=== PATIENT | female | born 1955 | race Caucasian/White ===

== ENCOUNTER 2018-03-26 20:04 | Emergency (ER) | payer MEDICARE ==
[~2018-03-26] VITALS: Ht 160 cm; Wt 81.6 kg
[2018-03-26 21:26] VITALS: BP 138/62
[2018-03-26] MEDS ORDERED: ROBAXIN-750750 MG PO (21:34)
== END 2018-03-26 21:37 | disposition home or self-care (01) ==
LOC: FSED 20:04
CPT/HCPCS: 99282

== ENCOUNTER 2020-09-03 13:17 | Emergency (ER) | payer MEDICARE, OTHER ==
[~2020-09-03] VITALS: Ht 160 cm; Wt 81.6 kg
[~2020-09-03 13:17] MED LIST: ROBAXIN-750750 MG PO
[2020-09-03] MEDS ORDERED: KETOROLAC TROMETHAMINE 60 MG/2 ML VIAL IM ONE (14:15)
[2020-09-03] MEDS ORDERED: DIAZEPAM INJ 5 MG/ML 2 ML IM ONE (14:15)
[2020-09-03] MEDS ORDERED: DIAZEPAM10 MG PO (14:16)
[2020-09-03] MEDS ORDERED: NAPROSYN500 MG PO (14:17)
[2020-09-03] MEDS ORDERED: DIAZEPAM5 MG PO (14:19)
[2020-09-03] MEDS ORDERED: KETOROLAC TROMETHAMINE 60 MG/2 ML VIAL ONE (14:19)
[2020-09-03] MEDS ORDERED: DIAZEPAM INJ 5 MG/ML 2 ML ONE (14:19)
== END 2020-09-03 14:40 | disposition home or self-care (01) ==
LOC: FSED 13:25
DX: M43.6 Torticollis (principal); I10 Essential (primary) hypertension; E11.9 Type 2 diabetes mellitus without complications; F32.9 Major depressive disorder, single episode, unspecified; F41.9 Anxiety disorder, unspecified
CPT/HCPCS: 99283; J1885; J3360

== ENCOUNTER 2020-09-05 09:30 | Emergency (ER) | payer MEDICARE, OTHER ==
[~2020-09-05] VITALS: Ht 160 cm; Wt 81.6 kg
[~2020-09-05 09:30] MED LIST changes: +DIAZEPAM10 MG PO; +DIAZEPAM5 MG PO; +NAPROSYN500 MG PO
--- NOTE | 2020-09-05 09:58 | Emergency Department Note ---
History of Present Illnes History of Present Illness Chief Complaint: Head/Face Trauma History of Present Illness This is a 65 year old female, with a history of hypertension, hy pothyroidism, NIDDM, anxiety, depression, who states that she was bending over picking up a printer, and when she stood up she felt slightly dizzy, lost her balance, and fell back hitting the corner of a wood stereo cabinet. She had no loss of consciousness, and got up immediately and spoke to her sister, with him she lives. Patient also taken a dose of Valium 5 mg, proximal 1 hour prior to the incident, that she been prescribed 2 days ago due to severe muscle spasms in her neck. She currently denies any neck pain, headache, nausea, vomiting, visual changes, numbness, tingling, or focal weakness. Patient had some bleeding from the back of her head following the fall. Bleeding is currently controlled. Patient does not take any blood thinners including no aspirin. Patient also mentions that she received a phone call from her doctor this morning, stating that her sodium level was low on lab work that was drawn on 09/02/2020, and the patient was advised to go to the emergency room for evaluation of low sodium. Patient denies any generalized weakness weakness, muscle weakness or fatigue, or muscle spasm. Patient does take high-dose Spiron olactone 100 mg by mouth twice a day, to treat female hair loss. Pt states that she typically drinks @ 10 bottles/water per day. Historian: Patient Arrival Mode: Car Special Librarian Required: No Onset (how long ago): hour(s) (1) Location: Occipital area Quality: laceration/hematoma Radiation: Denies non-radiation, Denies neck, Denies extremity Severity: moderate Onset quality: sudden Duration (how long): hour(s) (1) Timing of current episode: unable to specify Progression: resolved (pt is currently without dizziness, headache, N/V;) Chronicity: new Context: Reports trauma/injury (See HPI) Relieving factors: none Exacerbating factors: none Associated symptoms: Reports denies other symptoms; Denies confusion, Denies chest pain, Denies fever/chills, Denies headaches, Denies nausea/vomiting, Denies shortness of breath, Denies weakness Treatments prior to arrival: none Risk factors: elderly, medication, diabetic and hasn't yet eaten. Past Medical/Family History Physician Review I have reviewed the patient's past medical and family history. Any updates have been documented here. Past Medical History Recent Fever: No Clinical Suspicion of Infectio: No New/Unexplained Change in Ment: No Past Medical History: Hypertension, Diabetes, Hypothyroidism, Anxiety, Depression Past Surgical History: T&A, Other Surgery: Shoulder - Right Social History Smoking Cessation: Never Smoker Alcohol Use: None Any Illegal Drug Use: No TB Exposure/Symptoms: No Physically hurt or threatened: No Family History Family history of heart diseas: No Other Last Tetanus: unknown Any Pre-Existing Lines (PICC,: No Is patient up to date on immun: No Review of Systems Review of Systems Constitutional: Denies chills, Denies fever, Denies weakness EENTM: Denies eye pain, Denies blurred vision, Denies double vision Cardiovascular: Denies chest pain, Denies palpitations Respiratory: Denies chest congestion, Denies cough, Denies dyspnea, Denies dyspnea on exertion Gastrointestinal: Denies abdominal pain, Denies diarrhea, Denies nausea, Denies vomiting Genitourinary: Reports no symptoms Musculoskeletal: Reports neck pain (mild bilateral paraspinal muscle neck pain, improved from when seen here 2 days ago; denies any new pain or injury.) Integumentary: Denies change in color, Denies rash Neurological: Denies headache, Denies numbness, Denies paresthesia, Denies tingling, Denies weakness Psychological: Reports no symptoms Endocrine: Reports no symptoms Hematological/Lymphatic: Reports no symptoms, Reports easy bruising; Denies blood clots Review of other systems: All other systems negative Physical Exam Related Data Allergies: Coded Allergies: Sulfa (Sulfonamide Antibiotics) (Verified Allergy, Severe, RASH, 03/26/18) Triage Vital Signs Vital Signs Date Time Temp Pulse Resp B/P (MAP) Pulse Ox O2 Delivery O2 Flow Rate FiO2 09/05/20 09:48 98.2 68 16 115/70 100 Room Air Physical Exam CONSTITUTIONAL Constitutional: Present well-developed, Present well-nourished; Absent distressed HENT HENT: Present oropharynx clear/moist, Present nose normal; Absent atraumatic (1.5 cm lac of the mid-occiput, without active bleeding, with underlying hematoma, without fluctuance;) HENT L/R: Present left TM normal, Present right TM normal, Present left ext ear normal, Present right ext ear normal EYES Eyes: Reports PERRL, Reports conjunctivae normal NECK Neck: Present ROM normal, Present supple; Absent JVD, Absent cervical adenopathy PULMONARY Pulmonary: Present effort normal, Present breath sounds normal CARDIOVASCULAR Cardiovascular: Present regular rhythm, Present heart sounds normal, Present capillary refill normal, Present normal rate; Absent murmur GASTROINTESTINAL Abdominal: Present soft, Present nontender, Present bowel sounds normal; Absent tender GENITOURINARY Genitourinary: Present exam deferred SKIN Skin: Present warm, Present dry; Absent rash, Absent lesion MUSCULOSKELETAL Musculoskeletal: Present ROM normal; Absent edema, Absent deformity, Absent tenderness NEUROLOGICAL Neurological: Present alert, Present oriented x 3, Present no gross motor or sensory deficits; Absent cranial nerve deficit PSYCHOLOGICAL Psychological: Present mood/affect normal, Present judgement normal Results Laboratory Laboratory UA - gluc = 500 mg/dl; blo - trace-lysed, imelda - small; Urine Culture - sent; CBC - nl except for HCT = 39.7; Metlyte - Na = 133, Cl = 92; Hepatic Profile - normal; CCKMB = 5.5, isabela = 154, trop - nl; Lab results reviewed: Yes Procedures Laceration Laceration: Laceration 1 Site: scalp Side: right (more central;) Description: irregular Depth: simple, single layer Local anesthesia: lidocaine 1% Amount of anesthesia (mL): 8 Pre-repair: wound exposed, irrigated extensively Skin layer closed with: other ([place]) Number of sutures: 5 Technique: other (senthil) Additional comments Pt tolerated well, without immediate complication; Assessment & Plan Medical Decision Making MDM - Pt declined CT brain and other syncope work up. She states that she fell, "because she hadn't eaten." Blood and urine were performed, due to possible hyponatremia; - Na - 133 mg/dl, - STOP taking the Valium, that was prescribed for your neck pain, as it may be contributing to dizziness. Be VERY careful standing up or getting out of bed, if you are taking the Tylenol #3 with codeine. - Keep the wound on the posterior scalp clean and dry x 24 hours, and then you may gently wash twice daily with antibacterial soap and water, and then apply over the counter antibiotic ointment, such as Triple Antibiotic Ointment, Bacitracin or Neosporin. - Follow-up in the ED in 7 days, for removal of senthil. - Follow-up sooner, if you develop any signs of infection around the wound, including drainage from the wound, redness, or increased tenderness of the wound. - Limit your daily water/fluid intake to 6 bottles/24h. - Return to the ED, if you develop a severe headache, vomiting 2 or more times, you are sleeping more than ususal, are having difficulty staying awake when you should be awake and alert or any neurologic symptoms. - Follow-up with your PCP, regarding this ER visit and to share your lab results. Assessment & Plan Final Impression: (1) Closed head injury (2) Fall (3) Laceration of scalp (4) UTI (urinary tract infection) (5) Diabetes (6) Hypertension (7) Depression Depart Disposition: HOME, SELF-CARE Last Vital Signs Date Time Temp Pulse Resp B/P (MAP) Pulse Ox O2 Delivery O2 Flow Rate FiO2 09/05/20 09:48 98.2 68 16 115/70 100 Room Air Home Meds Active Scripts Nitrofurantoin Monohyd/M-Cryst (MACROBID 100 MG CAPSULE) 100 Mg Capsule, 100 MG PO BIDWM for Urinary Tract Infection for 10 Days, #20 CAP 0 Refills Prov:MATILDE ASHER MD 09/05/20 Diazepam (DIAZEPAM) 5 Mg Tablet, 1-2 TAB PO Q8H PRN for muscle pain and spasm, #20 TAB Do [address] take and drive or operate machinery. Prov:MATILDE ASHER MD 09/03/20 Naproxen (NAPROSYN) 500 Mg Tablet, 500 MG PO BID for pain and inflammation, #30 TAB 0 Refills Prov:MATILDE ASHER MD 09/03/20 Methocarbamol (ROBAXIN-750) 750 Mg Tablet, 1-2 TAB PO TID PRN for PAIN, #30 TAB 0 Refills Prov:HORTENSIA SCHROEDER MD 03/26/18 Discontinued Scripts Diazepam (DIAZEPAM) 10 Mg Tablet, 1 TAB PO Q8H PRN for muscle spasm, #15 0 Refills Do NOT take and drive or operate machinery. Prov:MATILDE ASHER MD 09/03/20 MATILDE ASHER MD Sep 05, 2020 09:58
--- OUTSIDE RECORDS SUMMARY | 2020-09-05 10:43 | XMS REPORT | Clinical Summary ---
Author Author [facility] Address Unknown Phone Unavailable Care Team Providers Care Test Designer Name Role Phone Ale Sanchez MD PCP Allergies Comments Active Allergy Reactions Severity Noted Date Chest Pain Amoxicillin-Pot Other (See 12/21/2019 Clavulanate Comments) Sulfa (Sulfonamide Rash Low 12/21/2019 Antibiotics) Medications End Date Status Medication Sig Dispensed Refills Start Date Active levothyroxine (SYNTHROID) Take 75 mcg 0 75 mcg tablet by mouth daily. Active empagliflozin (JARDIANCE) Take 25 mg by 0 25 mg tablet mouth daily. Active vortioxetine (TRINTELLIX) Take 20 mg by 0 20 mg tablet mouth daily. Active lisinopril (PRINIVIL) 40 Take 40 mg by 0 mg tablet mouth daily. Active NIFEdipine XL (PROCARDIA Take 60 mg by 0 XL) 60 MG 24 hr tablet mouth daily. Active aspirin (ECOTRIN) 81 MG Take 162 mg 0 enteric coated tablet by mouth daily. Active spironolactone Take 100 mg 0 (ALDACTONE) 100 MG tablet by mouth daily. Active busPIRone (BUSPAR) 10 MG Take 10 mg by 0 tablet mouth 2 (two) times a day. Active linagliptin-metformin Take by mouth 0 (JENTADUETO) 2.5-1,000 mg 2 (two) times tablet a day. Active multivitamin (THERAGRAN) Take 1 tablet 0 tablet by mouth daily. Active cholecalciferol, vitamin Take 5,000 0 D3, 5,000 unit capsule Units by mouth daily. Active calcium carbonate Take 2 0 (CALCIUM 600 ORAL) tablets by mouth daily. Active diclofenac (VOLTAREN) 75 Take 75 mg by 0 MG EC tablet mouth 2 (two) times a day. Active primidone (MYSOLINE) 50 Take 1 1/2 120 tablet 5 MG tabletIndications: tablets p.o. 0 Essential tremor nightly for at least 2 weeks for tremor. If needed, may increase to 2 tablets nightly thereafter 03/15/2020 Discontinued (Reorder) primidone (MYSOLINE) 50 One half tab 30 tablet 2 0 MG tabletIndications: p.o. nightly 0 Essential tremor for 1-2 weeks for tremor. If needed, increase to 1 tablet p.o. nightly thereafter 05/08/2020 Discontinued primidone (MYSOLINE) 50 Take 1 tablet 90 tablet 0 MG tabletIndications: p.o. nightly 0 Essential tremor 06/08/2020 Discontinued primidone (MYSOLINE) 50 TAKE 1/2 30 tablet 0 202 MG tabletIndications: TABLET BY 0 Essential tremor MOUTH AT BEDTIME FOR 1-2 WEEKS,IF NEEDED, TAKE 1 TABLET BY MOUTH EVERY DAY NIGHT 07/13/2020 Discontinued (Reorder) primidone (MYSOLINE) 50 TAKE 1/2 30 tablet 0 202 MG tabletIndications: TABLET BY 0 Essential tremor MOUTH AT BEDTIME FOR 1-2 WEEKS,IF NEEDED, TAKE 1 TABLET BY MOUTH EVERY DAY NIGHT 08/17/2020 Discontinued (Reorder) primidone (MYSOLINE) 50 Take 1 tablet 90 tablet 0 202 MG tabletIndications: p.o. nightly 0 Essential tremor Active Problems Problem Noted Date Chronic bilateral low back pain with right-sided scia lázaro 03/14/2020 Essential tremor 12/21/2019 Family history of Parkinson's disease 12/21/2019 Diabetic polyneuropathy associated with type 2 diabet es mellitus 12/21/2019 Encounters Care Team Description Date Type Specialty Brenda Ruiz MA Essential tremor 08/14/2020 Telephone Neurology Leona Mora MD Essential tremor 07/17/2020 Refill Neurology Brenda Ruiz MA Essential tremor 07/13/2020 Telephone Neurology Leona Mora MD Essential tremor 07/07/2020 Refill Neurology Leona Mora MD 06/08/2020 Telephone Neurology Leona Mora MD Essential tremor 06/08/2020 Refill Neurology Leona Mora MD 05/08/2020 Telephone Neurology Leona Mora MD Essential tremor 05/07/2020 Refill Neurology Brenda Ruiz MA Essential tremor 03/15/2020 Telephone Neurology Leona Mora MD Essential tremor (Primary Dx); Chronic bilateral low back pain with right-sided sciatica; Diabetic polyneuropathy associated with type 2 diabetes mellitus (HCC); Family history of Parkinson's disease 03/14/2020 Telemedicine Neurology Merry Garibay MA 12/31/2019 Telephone Neurology Leona Mora MD Essential tremor (Primary Dx); Family history of Parkinson's disease; Diabetic polyneuropathy associated with type 2 diabetes mellitus (HCC) 12/21/2019 Office Visit Neurology after 09/05/2019 Surgical History Surgery Date Site/Laterality Comments TONSILLECTOMY SHOULDER SURGERY Right SECTION KNEE SURGERY Right Medical History Medical History Date Comments Hypertension Diabetes mellitus (HCC) Arthritis Lupus (HCC) No longer under the care of rheumatology. Did not tolerate methotrexate in the past. Hector es prednisone as needed for flareups Hypothyroidism GERD (gastroesophageal reflux disease) Depression Atopic dermatitis Tremor Family History Medical History Relation Name Comments Tremor Brother Heart disease Father Hypertension Father Tremor Father Hypertension Mother Stroke Mother Relation Name Status Comments Brother Alive Father (Age 81) Mother (Age 82) Social History Date Tobacco Use Types Packs/Day Years Used Quit: 1975 Former Smoker Smokeless Tobacco: Never Used Drinks/Week oz/Week Comments Alcohol Use Never Alcohol Habits Answer Date Recorded How often do you have a drink containing alcohol? Never 12/21/2019 How many drinks containing alcohol do you have on No t asked a typical day when you are drinking? How often do you have six or more drinks on one Not asked occasion? 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 Height 30.11 12/21/2019 2:22 PM [employer] SYSTEM[employer] ENGINEER Body Mass Index Plan of Treatment Care Team Description Date Type Specialty Leona Mora MD [address] [facility] [address] [place] [id number] [phone] 01/09/2021 Telemedicine Neurology Health Maintenance Due Date Last Done Comments DIABETIC RETINAL EYE EXAM 1954 DIABETIC FOOT EXAM 1964 URINE MICROALBUMIN 1964 BREAST CANCER SCREENING 2004 COLONOSCOPY SCREENING 2004 SHINGLES VACCINES (#1) 2004 65+ PNEUMOCOCCAL VACCINE 2019 (1 of 1 - PPSV23) INFLUENZA VACCINE 06/24/2020 09/22/2019, 09/28/2018 Procedures Comments Procedure Name Priority Date/Time Associated Diag nosis COMPREHENSIVE METABOLIC Routine 12/21/2019 Essent ial tremor PANEL 3:21 PM [employer]BER SEC[employer] SYSTEM[employer] ENGINEER CBC WITH PLATELET AND Routine 12/21/2019 Essentia l tremor DIFFERENTIAL 3:21 PM CYBER SEC[employer] SYSTEMS ENGINEER after 09/05/2019 Results * CBC with platelet and differential (12/21/2019 3:21 PM CYBER SEC[employer]ITY SYSTEMS ENGINEER) WBC 10.5 3.8 - 10.8 [facility] [place] RBC 4.28 3.80 - 5.10 [facility] Million/[facility]L [facility] [place] HGB 13.2 11.7 - 15.5 g/dL [facility] [place] HCT 38.6 35.0 - 45.0 % [facility] [place] MCV 90.2 80.0 - 100.0 fL [facility] [place] MCH 30.8 27.0 - 33.0 pg [facility] [place] MCHC 34.2 32.0 - 36.0 g/dL [facility] [place] RDW 13.7 11.0 - 15.0 % [facility] [place] Platelet count 418 (H) 140 - 400 [facility] [place] MPV 9.0 7.5 - 12.5 fL [facility] [place] Neutrophils, 5,891 1,500 - 7,800 [facility] absolute cells/uL [facility] [place] Lymphocytes, 3,108 850 - 3,900 cells/uL [facility] [place] Monocytes, 725 200 - 950 cells/uL [facility] [place] Eosinophils, 683 (H) 15 - 500 cells/uL [facility] [place] Basophils, 95 0 - 200 cells/uL [facility] [place] Neutrophils 56.1 % [facility] [place] Lymphocytes 29.6 % [facility] [place] Monocytes 6.9 % [facility] [place] Eosinophils 6.5 % [facility] [place] Basophils + RC 0.9 % [facility] [place] Specimen Blood Narrative Performed At FASTING:NO [facility] FASTING: NO Resulting Agency Comment Performing Organization Information: Site ID: [id number] Name: [facility] Address: [address] [place] [id number] Director: Inderjit Brennan Performing Organization Address City/State/ZIP Code P sugar Number [facility] [employer] [facility] [place] [address] [place], [place] [phone] * Comprehensive metabolic panel (12/21/2019 3:21 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 EGFR Non-Afr. 60 > OR = 60 [facility] mL/min/1.73m2 [facility] [place] EGFR 69 > OR = 60 [facility] mL/min/1.73m2 [facility] [place] BUN/creatinine NOT APPLICABLE 6 - 22 (calc) [facility] [place] Sodium 137 135 - 146 mmol/L [facility] [place] Potassium 4.8 3.5 - 5.3 mmol/L [facility] [place] Chloride 97 (L) 98 - 110 mmol/L [facility] [place] CO2 29 20 - 32 mmol/L [facility] [place] Calcium 10.1 8.6 - 10.4 mg/dL [facility] [place] Protein 7.5 6.1 - 8.1 g/dL [facility] [place] Albumin, S 4.6 3.6 - 5.1 g/dL [facility] [place] Globulin, total 2.9 1.9 - 3.7 g/dL [facility] (calc) [facility] [place] Albumin/globuli 1.6 1.0 - 2.5 (calc) [facility] n ratio [facility] [place] Total bilirubin 0.5 0.2 - 1.2 mg/dL [facility] [place] Alkaline 84 33 - 130 U/L [facility] phosphatase [facility] [place] AST 14 10 - 35 U/L [facility] [place] ALT 12 6 - 29 U/L [facility] [place] Specimen Blood Narrative Performed At FASTING:NO [facility] FASTING: NO Resulting Agency Comment Performing Organization Information: Site ID: [id number] Name: [facility] Address: [address] [place] [address] Director: Inderjit Brennan Performing Organization Address City/State/ZIP Code P sugar Number [facility] [place] [address] [place] [phone] after 09/05/2019 Insurance Type Payer Benefit Subscriber ID Effective Phone Address Plan / Dates Group Medicare MEDICARE MEDICARE [id number] 2011-P [place], PART A AND resent [place] Commercial [employer] [facility] [facility] [id number] 2019- SUPPLEMENT Present Advance Directives For more information, please contact: [phone] 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
--- OUTSIDE RECORDS SUMMARY | 2020-09-05 10:44 | XMS REPORT | Continuity of Care Document ---
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 unremarkable. Left lower extremity: The common femoral vein, superficial femoral vein, popliteal vein and visualized posterior tibial/calf veins are patent. There is no echogenic debris to suggest deep venous thrombosis. The saphenofemoral junction is unremarkable. IMPRESSION: No deep venous thrombosis in the bilateral lower extremities. SL: [id number] 07/20/2019 JOSE Rangely Bone Density D[employer] MA BONE DENSITY ASSESSMENT: 10/20/2018 CLINICAL DATA: Post menopausal. M85.89 Other specified disorders of bone density and structure, multiple sites. M85.89 Other Specified Disorders Of Bone Density And Structure, Multiple Sites/M85.89 Other Specified Disorders Of Bone Density And Structure, Multiple Sites RISK FACTORS: race. FINDINGS: Bone density evaluation was performed 10/20/2018 on the right femur neck using a Hologic unit. The BMD average for the exam is 0.895 g/cm2. The T-score is 0.40 and the Z-score is 1.90. This matches the World Health Organization's criteria for normal bone density and places the patient within normal limits of fracture risk. An additional bone density evaluation was performed 10/20/2018 on the left femur neck using a Hologic unit. The BMD average for the exam is 0.898 g/cm2. The T- score is 0.40 and the Z-score is 1.90. This matches the World Health Organization's criteria for normal bone density and places the patient within normal limits of fracture risk. An additional bone density evaluation was performed 10/20/2018 on the right hip using a Hologic unit. The BMD average for the exam is 0.996 g/cm2. The T-score is 0.40 and the Z-score is 1.60. This matches the World Health Organization's criteria for normal bone density and places the patient within normal limits of fracture risk. An additional bone density evaluation was performed 10/20/2018 on the left hip using a Hologic unit. The BMD average for the exam is 1.098 g/cm2. The T-score is 0.70 and the Z-score is 1.90. This matches the World Health Organization's criteria for normal bone density and places the patient within normal limits of fracture risk. An additional bone density evaluation was performed 10/20/2018 on the AP L1-L4 region of spine using a Hologic unit. The BMD average for the exam is 1.145 g/cm2. The T-score is 0.90 and the Z-score is 2.60. This matches the World Health Organization's criteria for normal bone density and places the patient within normal limits of fracture risk. IMPRESSION: BONE DENSITY WITHIN NORMAL LIMITS Patient is at normal risk for fracture. This exam was interpreted at [id number] for MARQUEZ Serna 15. Nathan Hernandez M.D., cm/deepika:10/21/2018 10:28:42 Primary Special Educator(s): Yun Kaur RT(R)(M), [facility] 10/20/2018 [facility] [place] contrast MRI EXAMI NATION: MR left shoulder without contrast HISTORY: - M25.512 Pain in left shoulder; AGE: 62 years GENDER: Female COMPARISON: There are no radiographs available for review. TECHNIQUE: Multiplanar, multisequence magnetic resonance imaging of the left shoulder is performed with a local coil. Transverse, oblique coronal, and oblique sagittal images are obtained. FINDINGS: Biceps: The long head of the biceps tendon is visualized to level of the anchor with mild intra-articular tendinosis.. There is no significant tenosynovitis of the long head of the biceps tendon. Labrum: There is hypoplasia of the labrum in the anterior quadrant with hypertrophy of the middle glenohumeral ligament complex. There is also moderate diffuse labral diminution consistent with herniation. No discrete labral tear identified. Rotator cuff tendons: There is moderate to severe tendinosis of the supraspinatus tendon with moderate thinning of the footplate, greatest posteriorly. No full-thickness tear identified. Mild infraspinatus tendinosis with a low-grade 6 mm interstitial tear at the critical zone. The subscapularis and infraspinous tendons are intact and unremarkable. Muscles: There is normal signal intensity and muscle bulk of the rotator cuff musculature. Acromio-osseous outlet: There is a type 2 acromion with mild subacromial spurring. The coracoacromial and coracoclavicular ligaments are intact. The acromioclavicular joint appears normal. Bone: There are no acute fractures. There are no suspicious bone marrow replacing lesions. Cartilage: Grade 2 chondral thinning in the glenohumeral joint without full- thickness or high-grade partial-thickness chondral defect. Soft tissue: Small volume of fluidin the subacromial-subdeltoid bursa. Trace glenohumeral joint effusion.The glenohumeral capsule is intact. The inferior glenohumeral ligament is unremarkable..The axilla and visualized portions of the hemithorax are unremarkable. IMPRESSION: 1. Severe supraspinatus tendinosis with moderate thinning and bursal surface fraying of the posterior footplate. No full-thickness tear identified. 2. Mild infraspinatus tendinosis with a low-grade 6 mm interstitial tear at the critical zone. 3. Mild tendinosis of the intra-articula r biceps tendon without tear. 4. Mild subacromial/subdeltoid bursitis. 5. Type II acromion with subacromial spu rring. 04/21/2018 KT Silva Hand 2 views Bilateral DX CLIN ICAL HISTORY: pain AGE: 61 years GENDER: Female TECHNIQUE:Bilateral hand radiographs, 3 views. COMPARISON: None FINDINGS: Right hand: There is no evidence of fracture or dislocation. Osseous mineralization is within normal limits. No lytic or blastic lesions are identified. No cortical or erosion or periosteal reaction.. Joint space narrowing is seen in the interphalangeal joints, greatest in the 2nd and 3rd digits. Mild degenerative changes in the 1st MCP joint. No evidence of joint subluxation or cortical erosion. No periosteal reaction. Left hand: There is no evidence of fracture or dislocation. Osseous mineralization is within normal limits. No lytic or blastic lesions are identified. No cortical or erosion or periosteal reaction.. Severe joint space narrowing and subchondral cyst formation is seen in the 1st MCP joint. Interphalangeal joint space narrowing is also noted, greatest in the 2nd and 3rd digits. No evidence of joint subluxation. No periosteal reaction. IMPRESSION: Moderate osteoarthritis of both hands, left greater than right. No specific radiographic evidence of inflammatory arthropathy. 08/02/2016 KT Silva Chest 2 views DX EXAM: Chest 2 views DX HISTORY: psoriasis COMPARISON: None The heart size is normal and the lungs are clear. There is no pleural effusion or pneumothorax. Mild discogenic degenerative changes are noted. IMPRESSION: No acute abnormality. 08/02/2016 KT Silva Foot 3 views bilateral DX EXAM INATION: Bilateral feet 3 views each HISTORY: Bilateral foot pain; psoriasis; polyarticular osteoarthritis FINDINGS: 3 view non-weightbearing examination of each foot is performed without comparison. There are no fractures or dislocations. There is osteoarthrosis with dorsal osteophyte formation along the naviculocuneiform joint of the left midfoot. There is minimal right 1st metatarsophalangeal joint osteoarthritis. Mild polyarticular interphalangeal joint osteoarthritis of the toes bilaterally is noted. There are no ankle effusions. There is a tiny left plantar calcaneal spur. There is enthesopathic heterotopic ossification at the left Achilles insertion. There are no radiopaque foreign bodies identified. IMPRESSION: 1. Mild left midfoot osteoarthritis with dorsal osteophyte formation along the naviculocuneiform joint. 2. Minimal right 1st metatarsophalangeal joint osteoarthritis, as well as, mild polyarticular interphalangeal joint osteoarthritis of the toes bilaterally. 3. Tiny left plantar calcaneal spur 08/02/2016 JOSE Silva Consultation Notes No Data Provided for This Section Discharge Summaries No Data Provided for This Section History and Physicals No Data Provided for This Section Vital Signs Vital Sign Value Date Comments Source Systolic (mm Hg) 106 09/22/2019 [facility] Diastolic (mm Hg) 67 09/22/2019 [facility] Heart Rate 71 09/22/2019 [facility] Temperature Oral (F) 98.3 F 09/22/2019 [facility] Height 160.02 cm 09/22/2019 [facility] Weight 74.688 09/22/2019 [facility] BMI Calculated 29.17 09/22/2019 [facility] Systolic (mm Hg) 124 07/28/2019 [facility] Diastolic (mm Hg) 72 07/28/2019 [facility] Heart Rate 68 07/28/2019 [facility] Temperature Oral (F) 97.7 F 07/28/2019 [facility] Height 160.02 cm 07/28/2019 [facility] Weight 77.074 07/28/2019 [facility] BMI Calculated 30.1 07/28/2019 [facility] Systolic (mm Hg) 118 07/19/2019 [facility] Diastolic (mm Hg) 67 07/19/2019 [facility] Temperature Oral (F) 98.8 F 07/19/2019 [facility] Height 160.02 cm 07/19/2019 [facility] Weight 78.21 07/19/2019 [facility] BMI Calculated 30.54 07/19/2019 [facility] BMI Calculated 29.53 04/07/2019 [facility] Weight 75.625 04/07/2019 [facility] Height 160.02 cm 04/07/2019 [facility] Temperature Oral (F) 98.2 F 04/07/2019 [facility] Heart Rate 80 04/07/2019 [facility] Systolic (mm Hg) 136 04/07/2019 [facility] Diastolic (mm Hg) 80 04/07/2019 [facility] BMI Calculated 29.49 02/23/2019 [facility] Weight 75.511 02/23/2019 [facility] Temperature Oral (F) 98.3 F 02/23/2019 [facility] Height 160.02 cm 02/23/2019 [facility] Systolic (mm Hg) 127 02/23/2019 [facility] Diastolic (mm Hg) 77 02/23/2019 [facility] Heart Rate 75 02/23/2019 [facility] Height 160.02 cm 09/28/2018 [facility] BMI Calculated 27.89 09/28/2018 [facility] Weight 71.42 09/28/2018 [facility] Heart Rate 68 09/28/2018 [facility] Temperature Oral (F) 98.3 F 09/28/2018 [facility] Systolic (mm Hg) 125 09/28/2018 [facility] Diastolic (mm Hg) 74 09/28/2018 [facility] Heart Rate 61 07/01/2018 [facility] Height 160.02 cm 07/01/2018 [facility] Systolic (mm Hg) 113 07/01/2018 [facility] Diastolic (mm Hg) 71 07/01/2018 [facility] Temperature Oral (F) 98.6 F 07/01/2018 [facility] Weight 72.727 07/01/2018 [facility] BMI Calculated 28.4 07/01/2018 [facility] Temperature Oral (F) 98.4 F 05/06/2018 [facility] Heart Rate 55 05/06/2018 [facility] Height 160.02 cm 05/06/2018 [facility] Systolic (mm Hg) 113 05/06/2018 [facility] Diastolic (mm Hg) 68 05/06/2018 [facility] BMI Calculated 29.5 05/06/2018 [facility] Weight 75.54 05/06/2018 [facility] Weight 76.847 04/09/2018 [facility] Height 160.02 cm 04/09/2018 [facility] BMI Calculated 30.01 04/09/2018 [facility] Heart Rate 65 04/09/2018 [facility] Temperature Oral (F) 98.4 F 04/09/2018 [facility] Systolic (mm Hg) 117 04/09/2018 [facility] Diastolic (mm Hg) 67 04/09/2018 [facility] Weight 76.932 04/02/2018 [facility] Height 160.02 cm 04/02/2018 [facility] BMI Calculated 30.04 04/02/2018 [facility] Heart Rate 58 04/02/2018 [facility] Temperature Oral (F) 98.1 F 04/02/2018 [facility] Systolic (mm Hg) 120 04/02/2018 [facility] Diastolic (mm Hg) 68 04/02/2018 [facility] BMI Calculated 30.42 12/10/2017 [facility] Weight 77.898 12/10/2017 [facility] Heart Rate 58 12/10/2017 [facility] Temperature Oral (F) 98.0 F 12/10/2017 [facility] Height 160.02 cm 12/10/2017 [facility] Systolic (mm Hg) 113 12/10/2017 [facility] Diastolic (mm Hg) 68 12/10/2017 [facility] BMI Calculated 30.38 11/06/2017 [facility] Height 160.02 cm 11/06/2017 [facility] Weight 77.784 11/06/2017 [facility] Systolic (mm Hg) 125 11/06/2017 [facility] Diastolic (mm Hg) 75 11/06/2017 [facility] Heart Rate 74 11/06/2017 [facility] Temperature Oral (F) 98.3 F 11/06/2017 [facility] Height 160.02 cm 10/22/2017 [facility] BMI Calculated 30.35 10/22/2017 [facility] Weight 77.727 10/22/2017 [facility] Heart Rate 58 10/22/2017 [facility] Group Respitory Rate 18 10/22/2017 [facility] Systolic (mm Hg) 128 10/22/2017 [facility] Diastolic (mm Hg) 77 10/22/2017 [facility] Temperature Oral (F) 98.5 F 10/22/2017 [facility] Height 63 0 12/28/2014 [facility] Weight 189 12/28/2014 [facility] Temperature Oral (F) 97.8 F 12/28/2014 [facility] Heart Rate 58 12/28/2014 [facility] Systolic (mm Hg) 147 12/28/2014 [facility] Diastolic (mm Hg) 81 12/28/2014 [facility] Height 63 0 08/22/2014 [facility] Weight 190 08/22/2014 [facility] Temperature Oral (F) 98.1 F 08/22/2014 [facility] Heart Rate 71 08/22/2014 [facility] Systolic (mm Hg) 110 08/22/2014 [facility] Diastolic (mm Hg) 62 08/22/2014 [facility] Height 63 0 07/14/2014 [facility] Weight 187 07/14/2014 [facility] Temperature Oral (F) 98.0 F 07/14/2014 [facility] Respitory Rate 12 07/14/2014 [facility] Heart Rate 64 07/14/2014 [facility] Systolic (mm Hg) 138 07/14/2014 [facility] Diastolic (mm Hg) 82 07/14/2014 [facility] Temperature Oral (F) 98.1 F 07/07/2014 [facility] Heart Rate 61 07/07/2014 [facility] Respitory Rate 12 07/07/2014 [facility] Systolic (mm Hg) 127 07/07/2014 [facility] Diastolic (mm Hg) 81 07/07/2014 [facility] Weight 187 07/07/2014 [facility] Height 63 0 01/07/2014 [facility] Weight 195.5 01/07/2014 [facility] Temperature Oral (F) 98.2 F 01/07/2014 [facility] Systolic (mm Hg) 135 01/07/2014 [facility] Diastolic (mm Hg) 88 01/07/2014 [facility] Heart Rate 88 01/07/2014 [facility] Encounters Location Location Details Encounter Type Encounter Number Reason For Visit Attending Provider ADM Date DC Date Status Source [facility] Office Visit [id number] Jomar Dias MD 07/07/2014 07/07/2014 Medical [facility] Lab Report [id number] Jomar Dias MD 07/07/2014 07/07/2014 Medical [facility] Office Visit [id number] Jomar Dias MD 07/14/2014 07/14/2014 Medical [facility] Office Visit [id number] Jomar Dias MD 07/18/2014 07/18/2014 Medical Group [facility] Office Visit [id number] Jomar Dias MD 08/22/2014 08/22/2014 Medical [facility] Office Visit [id number] Jomar Dias MD 12/28/2014 12/28/2014 Medical Group [facility] Office Visit [id number] Jomar Dias MD 01/10/2015 01/10/2015 Medical Group Outpatient [id number] BARBARA SANCHEZ 06/13/2015 Active [facility] [id number] BARBARA SANCHEZ 10/23/2015 Active [facility] Out[facility] [id number] BARBARA SANCHEZ 10/23/2015 Active [facility] Out[facility] [id number] BARBARA SANCHEZ 11/28/2015 Active [facility] [id number] BARBARA SANCHEZ 05/16/2016 Active [facility] [id number] BARBARA GENERMIKE 05/31/2016 Active [facility] Outpatient [id number] BARBARA GENERILLO 07/08/2016 Active [facility] Out[facility] [id number] BARBARA SANCHEZ 07/11/2016 [facility] [place] Out[facility] Diag Services [id number] Tona So 08/02/2016 08/03/2016 [facility] [place] Outpatient [id number] BARBARA GENERILLO 10/02/2016 Active [facility] [id number] BARBARA GENERILLO 10/03/2016 Active [facility] Out[facility] [id number] BARBARA GENERILLO 10/14/2016 Active [facility] Out[facility] [id number] BARBARA GENERILLO 10/31/2016 Active [facility] [id number] BARBARA GENERILLO 11/01/2016 [facility] [id number] BARBARA GENERILLO 01/03/2017 Active [facility] [id number] BARBARA GENERILLO 01/28/2017 Active [facility] Out[facility] [id number] BARBARA GENERILLO 02/03/2017 Active [facility] Outpatient [id number] BARBARA SANCHEZ 02/10/2017 Active [facility] Outpatient [id number] BARBARA SANCHEZ 05/02/2017 Active [facility] Outpatient [id number] BARBARA SANCHEZ 07/03/2017 Active [facility] Outpatient [id number] BARBARA SANCHEZ 09/17/2017 Active [facility] [place] Phone Message [id number] 10/10/2017 10/12/2017 [facility] Outpatient [id number] BARBARA SANCHEZ 10/14/2017 Active [facility] [place] Ambulatory Pre-Reg [id number] Barbara Sanchez 10/14/2017 10/14/2017 [facility] Outpatient [id number] BARBARA SANCHEZ 10/21/2017 Active [facility] [place] Ambulatory Pre-Reg [id number] Barbara Sanchez 10/21/2017 10/21/2017 [facility] Outpatient [id number] BARBARA SANCHEZ 10/22/2017 Active [facility] [place] Outpatient [id number] Barbara Sanchez 10/22/2017 10/23/2017 [facility] Outpatient [id number] BARBARA SANCHEZ 11/06/2017 Active [facility] [place] Outpatient [id number] Barbara Sanchez 11/06/2017 11/07/2017 Medical Group [facility] [place] Phone Message [id number] 11/21/2017 11/23/2017 [facility] Outpatient [id number] BARBARA SANCHEZ 12/02/2017 Active [facility] [place] Ambulatory Pre-Reg [id number] Barbara Sanchez 12/02/2017 12/02/2017 [facility] Outpatient [id number] BARBARA SANCHEZ 12/10/2017 Active [facility] Outpatient [id number] BARBARA SANCHEZ 12/10/2017 Active [facility] [place] Ambulatory Pre-Reg [id number] Barbara Sanchez 12/10/2017 12/10/2017 [facility] [place] Outpatient [id number] Barbara Sanchez 12/10/2017 12/11/2017 [facility] [place] Phone Message [id number] 12/12/2017 12/14/2017 [facility] [place] Phone Message [id number] 12/23/2017 12/25/2017 [facility] [place] Phone Message [id number] 01/01/2018 01/03/2018 [facility] [place] Phone Message [id number] 01/08/2018 01/10/2018 [facility] [place] Phone Message [id number] 02/10/2018 02/12/2018 [facility] Outpatient [id number] LAKSHMI ROCHA 04/02/2018 Active [facility] [place] Outpatient [id number] Barbara Sanchez 04/02/2018 04/03/2018 [facility] Outpatient [id number] BARBARA SANCHEZ 04/09/2018 Active [facility] [place] Outpatient [id number] Barbara Sanchez 04/09/2018 04/10/2018 Medical Group [facility] Outpatient Imaging - [place] Out[facility] Diag Services [id number] Barbara Sanchez 04/21/2018 04/22/2018 [facility] [place] Outpatient [id number] BARBARA SANCHEZ 05/06/2018 Active [facility] [place] Outpatient [id number] Barbara Sanchez 05/06/2018 05/07/2018 [facility] Outpatient [id number] BARBARA SANCHEZ 05/28/2018 Active [facility] [place] Ambulatory Pre-Reg [id number] Barbara Sanchez 05/28/2018 05/28/2018 Medical Group [facility] [place] OP Therapy Patients [id number] Issa Thompson 05/28/2018 06/27/2018 [facility] [place] [facility] [place] Phone Message [id number] 06/23/2018 06/25/2018 [facility] Outpatient [id number] BARBARA SANCHEZ 07/01/2018 Active [facility] [place] Outpatient [id number] Barbara Sanchez 07/01/2018 07/02/2018 [facility] [place] Phone Message [id number] 08/11/2018 08/13/2018 [facility] Outpatient [id number] BARBARA SANCHEZ 09/28/2018 Active [facility] [place] Outpatient [id number] Barbara Sanchez 09/28/2018 09/29/2018 [facility] Outpatient [id number] BARBARA SANCHEZ 09/30/2018 Active [facility] [place] Ambulatory Pre-Reg [id number] Barbara Sanchez 09/30/2018 09/30/2018 [facility] Outpatient [id number] NURSE VISIT 10/07/2018 Active [facility] [place] Outpatient [id number] NURSE VISIT 10/07/2018 10/08/2018 [facility] [place] Phone Message [id number] 10/19/2018 10/21/2018 [facility] Outpatient [facility] - [place] Out[facility] Diag Services [id number] Barbara Sanchez 10/20/2018 10/21/2018 [facility] [place] [facility] [place] Phone Message [id number] 10/30/2018 11/01/2018 [facility] [place] Phone Message [id number] 11/09/2018 11/11/2018 [facility] [facility] Phone Message [id number] 11/12/2018 11/14/2018 [facility] Phone Message [id number] 01/14/2019 01/16/2019 [facility] [place] Between Visit [id number] 01/22/2019 01/23/2019 [facility] Phone Message [id number] 01/22/2019 01/24/2019 [facility] [place] Phone Message [id number] 01/29/2019 01/31/2019 [facility] [place] Phone Message [id number] 02/16/2019 02/18/2019 [facility] Outpatient [id number] Barbara Sanchez 02/23/2019 Active [facility] [place] Outpatient [id number] Barbara Sanchez 02/23/2019 02/24/2019 [facility] Phone Message [id number] 03/09/2019 03/11/2019 [facility] [place] Phone Message [id number] 03/09/2019 03/11/2019 [facility] [place] Phone Message [id number] 03/23/2019 03/25/2019 [facility] Outpatient [id number] Barbara Sanchez 04/07/2019 Active [facility] [place] Outpatient [id number] Barbara Sanchez 04/07/2019 04/08/2019 [facility] [place] Phone Message [id number] 05/31/2019 06/02/2019 [facility] Outpatient [id number] Lakshmi Rocha 06/22/2019 Active [facility] [place] Ambulatory Pre-Reg [id number] Barbara Sanchez 06/22/2019 06/22/2019 [facility] Outpatient [id number] Barbara Sanchez 07/19/2019 Active [facility] [place] Outpatient [id number] Barbara Sanchez 07/19/2019 07/20/2019 [facility] [facility] [id number] Barbara Sanchez 07/20/2019 07/21/2019 [facility] Between Visit [id number] 07/21/2019 07/22/2019 [facility] [place] Phone Message [id number] 07/21/2019 07/23/2019 [facility] Outpatient [id number] Barbara Sanchez 07/28/2019 [facility] [place] Outpatient [id number] Barbara Sanchez 07/28/2019 07/29/2019 [facility] Outpatient [id number] Barbara Sanchez 09/22/2019 [facility] [place] [facility] [id number] Barbara Sanchez 09/22/2019 09/23/2019 [facility] [place] Phone Message [id number] 10/19/2019 10/21/2019 [facility] Primary Care [place] Trevizo Phone Message [id number] 03/13/2020 03/15/2020 Medical [facility] Procedures Procedure Code Date Perfomer Comments Source Collection of venous blood by venipuncture [id number] 10/07/2018 [facility] Dental care [id number] 02/22/2018 [facility], [facility]SE [place], [place] [place] Vision care [id number] 11/24/2015 [facility], JOSE [place], [facility] [place] [facility] [place] depression, criteria for diagnosis, step 1 [id number] 12/28/2014 Y Medical [facility] depression, criteria for diagnosis, step 2 73260 12/28/2014 Y [facility] depression, criteria for diagnosis, step 3 70806 12/28/2014 fatigue (loss of energy), feelings of worthlessness (guilt) [facility] diabetic foot check [id number] 01/07/2014 yes [facility] Mammogram [id number] 11/24/2002 [facility], JOSE [place], [facility], [facility] [place] CS - section [id number] Medical [facility], [place], [facility], [facility] [place] Knee joint operation [id number] Medical [facility], [place], [facility] [place], [facility] [place] Tonsillectomy [id number] [facility] [place], [facility] [place], [facility] [place] Assessment and Plan No Data Provided for This Section Plan of Care No Data Provided for This Section Social History Social History Date Source Social History TypeResponse Smoking Status Never smoker; Lives with someone who smokes; Cigarette Smoking Last 365 Days No; Reg Smoking Cessation Counseling No entered on: 09/22/19 09/22/2019 [facility] Social History TypeResponse Smoking Status Never smoker; Lives with someone who smokes; Cigarette Smoking Last 365 Days No; Reg Smoking Cessation Counseling No entered on: 07/19/19 07/19/2019 JOSE Cortes Social History TypeResponse Smoking Status Never smoker; Lives with someone who smokes; Cigarette Smoking Last 365 Days No; Reg Smoking Cessation Counseling No entered on: 04/07/19 04/07/2019 JOSE Silva Social History TypeResponse Smoking Status Never smoker; Lives with someone who smokes; Cigarette Smoking Last 365 Days No; Reg Smoking Cessation Counseling No entered on: 09/28/18 09/28/2018 KT Silva Family History No Data Provided for This Section Advance Directives No Data Provided for This Section Functional Status No Data Provided for This Section
--- OUTSIDE RECORDS SUMMARY | 2020-09-05 10:44 | XMS REPORT | Continuity of Care Document ---
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 tab, PO, BID, # 180 tab, 0 Refill(s), [facility] Cyclosporine 0.5 MG/ML Ophthalmic Suspension 2017-12-15 20:07:00 Yes 1 drp, BOTH EYES, Q12H, # 30 mL, 0 Refill(s), Pharmacy: [facility]/toribio wagner #[address] [facility] Fluticasone propionate 0.05 MG/ACTUAT Metered Dose Nasal Spr ay 2017-12-15 20:07:00 Yes 2 spray, N INOCENTE, BID, # 16 gm, 0 Refill(s), [facility] lisinopril 40 mg oral tablet 2017-12-15 20:07:00 Yes 40 mg = 1 tab, PO, Daily, # 90 tab, 1 Refill(s), [facility] glyBURIDE 5 mg oral tablet 2017-12-15 20:07:00 Yes 5 mg = 1 tab, PO, BID, # 180 tab, 0 Refill(s), [facility] predniSONE 5 mg oral tablet 2017-12-15 20:07:00 Yes 5 mg = 1 tab, PO, Daily, # 30 tab, 0 Refill(s), [facility] levothyroxine 75 mcg (0.075 mg) oral tablet 2017-12-15 20:07:00 Yes 75 microgram = 1 tab, PO, Daily, # 90 tab, 0 Refill(s), [facility] Betamethasone 0.5 MG/ML / Clotrimazole 10 MG/ML Topical Crea m [Lotrisone] 2017-12-15 20:07:00 No 1 appl, TOP, BID, # 60 gm, 2 Refill(s), [facility] MG Oral Tablet [Invokana] 2017-12-15 15:05:44 Yes 300 mg = 1 tab, PO, Before Breakfast, # 90 tab, 3 Refill(s) Arslan Bhardwaj canagliflozin 300 MG Oral Tablet [Invokana] 2017-11-21 15:40:00 Yes 300 mg = 1 tab, PO, Before Breakfast, # 30 tab, 5 Refill(s), Pharmacy: [facility] [id number] Arslan Bhardwaj vortioxetine 10 MG Oral Tablet [Trintellix] 2017-11-06 19:37:04 Yes 10 mg = 1 tab, PO, Daily, # 90 tab, 3 Refill(s) Arslan Bhardwaj Cyclosporine 0.5 MG/ML Ophthalmic Suspension [Restasis] 2017-11-06 19:37:00 Yes 1 drp, BOTH EYES, Q12H, # 3 ea, 3 Refill (s) Arslan Bhardwaj vortioxetine 10 MG Oral Tablet [Trintellix] 2017-10-22 21:49:08 Yes 10 mg = 1 tab, PO, Daily, # 90 tab, 3 Refill(s) Arslan Bhardwaj Linagliptin 2.5 MG / Metformin hydrochlo ride 1000 MG Oral Tablet [Jentadueto 2.03/1000] 2017-10-22 21:42:12 Yes 1 tab, PO, BID-Meals, # 180 tab, 3 Refill(s) Arslan Bhardwaj canagliflozin 300 MG Oral Tablet [Invokana] 2017-10-22 21:42:00 Yes 300 mg = 1 tab, PO, Before Breakfast, # 90 tab, 3 Refill(s) Arslan Bhardwaj canagliflozin 300 MG Oral Tablet [Invokana] 2017-10-10 21:07:20 Yes See Instructions, # 90 tab, Refill(s) 3, TAKE 1 TABLET BY MOUTH BEFORE BREAKFAST, [facility] [id number] Arslan Bhardwaj BUSPIRONE HCL 10 MG TABS 2014-12-28 00:00:00 Yes two tablets twice a day Arslan Bhardwaj LEXAPRO 20 MG TABS 2014-12-28 00:00:00 Yes 1 tablet daily Arslan Bhardwaj GLUCOVANCE 5-500 MG TABS 2014-11-09 00:00:00 Yes 2 tabs orally twice daily Arslan Bhardwaj GLUCOVANCE 5-500 MG TABS 2014-08-22 00:00:00 No 2 orally twice daily Arslan Bhardwaj ACCU-CHEK SOFT TOUCH LANCETS MISC (LANCETS) SUNIL 2014-08-10 00:0 0:00 No check blood sugar twice daily [facility] ACCU-CHEK SMARTVIEW STRP (GLUCOSE BLOOD) SUNIL 2014-08-10 00:00:0 0 No check blood sugar twice daily Nd lobo Bhardwaj ACCU-CHEK SUNIL SMARTVIEW W/DEVICE KIT 2014-08-08 00:00:00 N o check Blood glucose 2 itme/day [facility] SIMVASTATIN 40 MG TABS 2014-07-18 00:00:00 Yes one tablet at night [facility] SIMVASTATIN 40 MG TABS 2014-07-18 00:00:00 Yes one tablet at night [facility] MACROBID CAP 100MG 2014-07-11 00:00:00 No Take one capsule by mouth twice a day [facility] ADALAT CC 30 MG [id number] 2014-07-07 00:00:00 No one orally daily [facility] GLUCOVANCE 5-500 MG TABS 2014-07-07 00:00:00 No 2 orally twice daily [facility] ADVANCED AM/PM MISC 2014-07-07 00:00:00 No 2 orally twice daily [facility] PROZAC 40 MG [facility] 2014-07-07 00:00:00 No on e orally daily [facility] ADALAT CC 30 MG [id number] 2014-07-07 00:00:00 No one orally daily [facility] XYZAL 5 MG TABS 2014-03-11 00:00:00 Yes take one tablet by mouth once a day [facility] GLYBURIDE 5 MG TABS 2014-03-10 00:00:00 No [address] [facility] METFORMIN HCL 1000 MG TABS 2014-02-25 00:00:00 No [address] [facility] METFORMIN HCL 1000 MG TABS 2014-02-25 00:00:00 No [address] [facility] ASPIRIN 81 MG TABS 2014-01-07 00:00:00 Yes O ne po daily [facility] FAMOTIDINE 20 MG TABS 2014-01-07 00:00:00 Yes [address] [facility] FISH OIL 1000 MG [facility] 2014-01-07 00:00:[address] [facility] FLAX SEED OIL 1000 MG [facility] 2014-01-07 00:00:[address] [facility] FLUOXETINE HCL 40 MG [facility] 2014-01-07 00:00:00 No One po daily [facility] GLUCOVANCE 5-500 MG TAB 2014-01-07 00:00:00 No 2 tablets twice daily [facility] JANUVIA 100 MG TABS 2014-01-07 00:00:00 No 1 tablet daily [facility] GLYBURIDE 5 MG TABS 2014-01-07 00:00:00 No 1 tablet twice daily [facility] ADALAT CC 30 MG [id number] 2014-01-07 00:00:00 No One po daily [facility] KETOPROFEN 75 MG CAPS 2014-01-07 00:00:00 Yes one po every 8 hours as needed for pain [facility] LEVOTHYROXINE SODIUM 75 MCG TABS 2014-01-07 00:00:00 Yes One po daily [facility] LISINOPRIL 40 MG TABS 2014-01-07 00:00:00 Yes One po daily [facility] SIMVASTATIN 40 MG TABS 2014-01-07 00:00:00 Yes 1 tablet at night [facility] TRADJENTA 5 MG TABS 2014-01-07 00:00:00 No 1 tablet daily [facility] CICLOPIROX 1 % SHAM 2014-01-07 00:00:00 Yes apply 5ml twice a week [facility] DIFLUCAN 100 MG TABS 2014-01-07 00:00:00 Yes One po three times a week [facility] PREDNISONE 5 MG TABS 2014-01-07 00:00:00 Yes one to 1 1/2 po daily as needed for pain [facility] SIMVASTATIN 10 MG TABS 2014-01-07 00:00:00 Yes 1 tablet daily [facility] FAMOTIDINE 20 MG TABS 2014-01-07 00:00:00 Yes 1 tablet twice daily [facility] KETOPROFEN 75 MG CAPS 2014-01-07 00:00:00 Yes one po every 8 hours as needed for pain [facility] PREDNISONE 5 MG TABS 2014-01-07 00:00:00 Yes one to 1 1/2 po daily as needed for pain [facility] ADALAT CC 30 MG [id number] 2014-01-07 00:00:00 No One po daily [facility] LISINOPRIL 40 MG TABS 2014-01-07 00:00:00 Yes One po daily [facility] TRADJENTA 5 MG TABS 2014-01-07 00:00:00 No 1 tablet daily [facility] PREDNISONE 5 MG TABS 2014-01-07 00:00:00 Yes one to 1 1/2 po daily as needed for pain [facility] acetaminophen 300 mg-codeine 30 mg tablet acetaminophe n 300 mg-codeine 30 mg tablet No acetaminophen 300 mg-codeine 30 mg tablet [facility] buspirone 10 mg tablet 1 tab bid buspirone 10 mg tablet 1 tab bid No buspirone 10 mg tablet 1 tab bid [facility] Cipro 250 mg tablet Take 1 tablet every 12 hours by oral route as directed for 3 days. Cipro 250 mg tablet Take 1 tablet every 12 hours by oral route as directed for 3 days. No 1 Q12H Cip ro 250 mg tablet Take 1 tablet every 12 hours by oral route as directed for 3 days. [facility] clobetasol 0.05 % lotion Apply 1 applica tion twice a day by topical route as directed for 30 days. clobetasol 0.05 % lotion Apply 1 applica tion twice a day by topical route as directed for 30 days. No 1application(s) BID clobetasol 0.05 % lotion Apply 1 application twice a day by topical route as directed for 30 days. [facility] ctice clotrimazole-betamethasone 1 %-0.05 % to pical cream APPLY TO THE AFFECTED AND SURROUNDING AREAS OF SKIN BY TOPICAL ROUTE 2 TIMES PER DAY IN THE MORNING AND EVENING FOR 2 WEEKS clotrimazole-betamethasone 1 %-0.05 % to pical cream APPLY TO THE AFFECTED AND SURROUNDING AREAS OF SKIN BY TOPICAL ROUTE 2 TIMES PER DAY IN THE MORNING AND EVENING FOR 2 WEEKS No clotrimazole-betamethasone 1 %-0.05 % topical cream APPLY TO THE AFFECTED AND SURROUNDING AREAS OF SKIN BY TOPICAL ROUTE 2 TIMES PER DAY IN THE MORNING AND EVENING FOR 2 WEEKS [facility] diclofenac sodium 50 mg tablet,delayed r elease TAKE 1 TABLET BY MOUTH TWICE A DAY diclofenac sodium 50 mg tablet,delayed r elease TAKE 1 TABLET BY MOUTH TWICE A DAY No diclofenac sodiu m 50 mg tablet,delayed release TAKE 1 TABLET BY MOUTH TWICE A DAY [facility] estradiol-norethindrone acet 0.5 mg-0.1 mg tablet Take 1 tablet every day by oral route. estradiol-norethindrone acet 0.5 mg-0.1 mg tablet Take 1 tablet every day by oral route. No 1 Q1D estradiol-norethindrone acet 0.5 mg- 0.1 mg tablet Take 1 tablet every day by oral route. [facility] famotidine 20 mg tablet TAKE 1 TABLET BY MOUTH TWICE A DAY famotidine 20 mg tablet TAKE 1 TABLET BY MOUTH TWICE A DAY No famotidine 20 mg tablet TAKE 1 TABLET BY MOUTH TWICE A DAY [facility] fluticasone propionate 50 mcg/actuation nasal spray,suspension SPRAY 2 SPRAYS INTO EACH NOSTRIL TWICE A DAY fluticasone propionate 50 mcg/actuation nasal spray,suspension SPRAY 2 SPRAYS INTO EACH NOSTRIL TWICE A DAY No fluticasone propionate 50 mcg/actuation nasal spray,suspension SPRAY 2 SPRAYS INTO EACH NOSTRIL TWICE A DAY [facility] glimepiride 1 mg tablet Take 1 tablet ev [place] day by oral route in the morning for 30 days. glimepiride 1 mg tablet Take 1 tablet ev [place] day by oral route in the morning for 30 days. No 1 Q1D gli mepiride 1 mg tablet Take 1 tablet every day by oral route in the morning for 30 days. [facility] hydroxyzine HCl 50 mg tablet hydroxyzine HCl 50 mg tablet N o hydroxyzine HCl 50 mg tablet [facility] Jentadueto 2.5 mg-1,000 mg tablet Take 1 tablet twice a day by oral route. Jentadueto 2.5 mg-1,000 mg tablet Take 1 tablet twice a day by oral route. No 1 BID Jentadueto 2.5 mg-1,000 mg tablet Take 1 tablet twice a day by oral route. [facility] ice levothyroxine 75 mcg tablet TAKE 1 TABLET BY MOUTH ONEIDA DAY levothyroxine 75 mcg tablet TAKE 1 TABLET BY MOUTH EVERY DAY No levothyroxine 75 mcg tablet TAKE 1 TABLET BY MOUTH EVERY DAY [facility] Magic Mouthwash Lido/Maalox/Benadryl 1:1 :1 1 Part viscous lidocaine 2%; 1 Part Maalox (do not substitute Kaopectate); 1 Part diphenhydramine 12.5 mg per 5 ml elixir Swish, gargle, and spit one to two teaspoonfuls every six hours as needed. Shake well before using. Magic Mouthwash Lido/Maalox/Benadryl 1:1 :1 1 Part viscous lidocaine 2%; 1 Part Maalox (do not substitute Kaopectate); 1 Part diphenhydramine 12.5 mg per 5 ml elixir Swish, gargle, and spit one to two te aspoonfuls every six hours as needed. Shake well before using. N o Magic Mouthwash Lido/Maalox/Benadryl 1:1:1 1 Part viscous lidocaine 2%; 1 Part Maalox (do not substitute Kaopectate); 1 Part diphenhydramine 12.5 mg per 5 ml elixir Swish, gargle, and spit one to two teaspoonfuls every six hours as needed. Shake well before using. [facility] nifedipine ER 30 mg tablet,extended rele ase Take 1 tablet every day by oral route in the morning for 30 days. nifedipine ER 30 mg tablet,extended rele ase Take 1 tablet every day by oral route in the morning for 30 days. No 1 Q1D nifedipine ER 30 mg tablet,extended rele ase Take 1 tablet every day by oral route in the morning for 30 days. [facility] primidone 50 mg tablet 1 po qhs primidone 50 mg tablet 1 po qhs No primidone 50 mg tablet 1 po qhs [facility] simvastatin 40 mg tablet Take 1 tablet e very day by oral route as directed for 30 days. simvastatin 40 mg tablet Take 1 tablet e very day by oral route as directed for 30 days. No 1 Q1D si mvastatin 40 mg tablet Take 1 tablet every day by oral route as directed for 30 days. [facility] spironolactone 100 mg tablet bid spironolactone 100 mg tablet bid No spironolactone 100 mg tablet bid [facility] tramadol 50 mg tablet tramadol 50 mg tablet No [facility] 20 mg tablet Take 1 tablet every day by ora l route. Trintellix 20 mg tablet Take 1 tablet every day by oral route. No 1 Q1D Trintellix 20 mg tablet Take 1 tablet every day by oral route. [facility] Immunizations Ordered Immunization Name Filled Immunization Name Date Status Comments Source influenza, high-dose, quadrivalent influenza, high-dose, dianelys drivalent 2020-09-02 12:29:00 Completed [facility] ice Vital Signs Vital Name Observation Time Observation Value Comments Source BP Diastolic 2020-09-02 00:00:00 72 mm[Hg] [facility] Height 2020-09-02 00:00:00 62 [in_i] [facility] BMI (Body Mass Index) 2020-09-02 00:00:00 27.5 kg/m2 [facility] BP Systolic 2020-09-02 00:00:00 122 mm[Hg] [facility] Body Weight 2020-09-02 00:00:00 150.6 [lb_av] [facility] BP Diastolic 2020-04-18 00:00:00 68 mm[Hg] [facility] Height 2020-04-18 00:00:00 62 [in_i] [facility] BMI (Body Mass Index) 2020-04-18 00:00:00 32.9 kg/m2 [facility] BP Systolic 2020-04-18 00:00:00 124 mm[Hg] [facility] Body Weight 2020-04-18 00:00:00 180 [lb_av] [facility] BP Diastolic 2020-01-10 00:00:00 68 mm[Hg] [facility] Height 2020-01-10 00:00:00 62 [in_i] [facility] BMI (Body Mass Index) 2020-01-10 00:00:00 31.6 kg/m2 [facility] BP Systolic 2020-01-10 00:00:00 122 mm[Hg] [facility] Body Weight 2020-01-10 00:00:00 173 [lb_av] [facility] Weight 2020-09-03 13:41:00 180 [lb_av] [facility] BMI (Body Mass Index) 2020-09-03 13:41:00 31.9 kg/m2 [facility] Systolic blood pressure 2020-03-14 10:24:00 120 mm[Hg] [facility] Diastolic blood pressure 2020-03-14 10:24:00 71 mm[Hg] [facility] Heart rate 2020-03-14 10:24:00 56 /min [facility] Body weight 2020-03-14 10:24:00 77.111 kg [facility] BMI 2020-03-14 10:24:00 30.11 kg/m2 [place] [facility] Body height 2019-12-21 14:22:00 160 cm [place] [facility] Systolic (mm Hg) 2019-09-22 21:02:00 [facility] Diastolic (mm Hg) 2019-09-22 21:02:00 [facility] Heart Rate 2019-09-22 21:02:00 [facility] Temperature Oral (F) 2019-09-22 21:02:00 98.3 F [facility] Height 2019-09-22 21:02:00 160.02 cm [facility] Weight 2019-09-22 21:02:00 [facility] BMI Calculated 2019-09-22 21:02:00 [facility] Systolic (mm Hg) 2019-07-28 19:08:00 [facility] Diastolic (mm Hg) 2019-07-28 19:08:00 [facility] Heart Rate 2019-07-28 19:08:00 [facility] Temperature Oral (F) 2019-07-28 19:08:00 97.7 F [facility] Height 2019-07-28 19:08:00 160.02 cm [facility] Weight 2019-07-28 19:08:00 [facility] BMI Calculated 2019-07-28 19:08:00 [facility] Systolic (mm Hg) 2019-07-19 20:41:00 [facility] Diastolic (mm Hg) 2019-07-19 20:41:00 [facility] Temperature Oral (F) 2019-07-19 20:41:00 98.8 F [facility] Height 2019-07-19 20:41:00 160.02 cm [facility] Weight 2019-07-19 20:41:00 [facility] BMI Calculated 2019-07-19 20:41:00 [facility] BMI Calculated 2019-04-07 21:32:00 [facility] Weight 2019-04-07 21:32:00 [facility] Height 2019-04-07 21:32:00 160.02 cm [facility] Temperature Oral (F) 2019-04-07 21:32:00 98.2 F [facility] Heart Rate 2019-04-07 21:32:00 [facility] Systolic (mm Hg) 2019-04-07 21:32:00 [facility] Diastolic (mm Hg) 2019-04-07 21:32:00 [facility] BMI Calculated 2019-02-23 20:20:00 [facility] Weight 2019-02-23 20:20:00 [facility] Temperature Oral (F) 2019-02-23 20:20:00 98.3 F [facility] Height 2019-02-23 20:20:00 160.02 cm [facility] Systolic (mm Hg) 2019-02-23 20:20:00 [facility] Diastolic (mm Hg) 2019-02-23 20:20:00 [facility] Heart Rate 2019-02-23 20:20:00 [facility] Height 2018-09-28 21:38:00 160.02 cm [facility] BMI Calculated 2018-09-28 21:38:00 [facility] Weight 2018-09-28 21:38:00 [facility] Heart Rate 2018-09-28 21:38:00 [facility] Temperature Oral (F) 2018-09-28 21:38:00 98.3 F [facility] Systolic (mm Hg) 2018-09-28 21:38:00 [facility] Diastolic (mm Hg) 2018-09-28 21:38:00 [facility] Heart Rate 2018-07-01 19:07:00 [facility] Height 2018-07-01 19:07:00 160.02 cm [facility] Systolic (mm Hg) 2018-07-01 19:07:00 [facility] Diastolic (mm Hg) 2018-07-01 19:07:00 [facility] Temperature Oral (F) 2018-07-01 19:07:00 98.6 F [facility] Weight 2018-07-01 19:07:00 [facility] BMI Calculated 2018-07-01 19:07:00 [facility] Temperature Oral (F) 2018-05-06 16:28:00 98.4 F [facility] Heart Rate 2018-05-06 16:28:00 [facility] Height 2018-05-06 16:28:00 160.02 cm [facility] Systolic (mm Hg) 2018-05-06 16:28:00 [facility] Diastolic (mm Hg) 2018-05-06 16:28:00 [facility] BMI Calculated 2018-05-06 16:28:00 [facility] Weight 2018-05-06 16:28:00 [facility] Weight 2018-04-09 16:15:00 [facility] Height 2018-04-09 16:15:00 160.02 cm [facility] BMI Calculated 2018-04-09 16:15:00 [facility] Heart Rate 2018-04-09 16:15:00 [facility] Temperature Oral (F) 2018-04-09 16:15:00 98.4 F [facility] Systolic (mm Hg) 2018-04-09 16:15:00 [facility] Diastolic (mm Hg) 2018-04-09 16:15:00 [facility] Weight 2018-04-02 16:25:00 [facility] Height 2018-04-02 16:25:00 160.02 cm [facility] BMI Calculated 2018-04-02 16:25:00 [facility] Heart Rate 2018-04-02 16:25:00 [facility] Temperature Oral (F) 2018-04-02 16:25:00 98.1 F [facility] Systolic (mm Hg) 2018-04-02 16:25:00 [facility] Diastolic (mm Hg) 2018-04-02 16:25:00 [facility] BMI Calculated 2017-12-10 21:00:00 [facility] Weight 2017-12-10 21:00:00 [facility] Heart Rate 2017-12-10 21:00:00 [facility] Temperature Oral (F) 2017-12-10 21:00:00 98.0 F [facility] Height 2017-12-10 21:00:00 160.02 cm [facility] Systolic (mm Hg) 2017-12-10 21:00:00 [facility] Diastolic (mm Hg) 2017-12-10 21:00:00 [facility] BMI Calculated 2017-11-06 19:21:00 [facility] Height 2017-11-06 19:21:00 160.02 cm [facility] Weight 2017-11-06 19:21:00 [facility] Systolic (mm Hg) 2017-11-06 19:21:00 [facility] Diastolic (mm Hg) 2017-11-06 19:21:00 [facility] Heart Rate 2017-11-06 19:21:00 [facility] Temperature Oral (F) 2017-11-06 19:21:00 98.3 F [facility] Height 2017-10-22 21:15:00 160.02 cm [facility] BMI Calculated 2017-10-22 21:15:00 [facility] Weight 2017-10-22 21:15:00 [facility] Heart Rate 2017-10-22 21:15:00 [facility] Respitory Rate 2017-10-22 21:15:00 [facility] Systolic (mm Hg) 2017-10-22 21:15:00 [facility] Diastolic (mm Hg) 2017-10-22 21:15:00 [facility] Temperature Oral (F) 2017-10-22 21:15:00 98.5 F [facility] Height 2014-12-28 20:02:01 [facility] Weight 2014-12-28 20:02:01 [facility] Temperature Oral (F) 2014-12-28 20:02:01 97.8 F [facility] Heart Rate 2014-12-28 20:02:01 [facility] Systolic (mm Hg) 2014-12-28 20:02:01 [facility] Diastolic (mm Hg) 2014-12-28 20:02:01 [facility] Height 2014-08-22 18:39:29 [facility] Weight 2014-08-22 18:39:29 [facility] Temperature Oral (F) 2014-08-22 18:39:29 98.1 F [facility] Heart Rate 2014-08-22 18:39:29 [facility] Systolic (mm Hg) 2014-08-22 18:39:29 [facility] Diastolic (mm Hg) 2014-08-22 18:39:29 [facility] Height 2014-07-14 16:07:06 [facility] Weight 2014-07-14 16:07:06 [facility] Temperature Oral (F) 2014-07-14 16:07:06 98.0 F [facility] Respitory Rate 2014-07-14 16:07:06 [facility] Heart Rate 2014-07-14 16:07:06 [facility] Systolic (mm Hg) 2014-07-14 16:07:06 [facility] Diastolic (mm Hg) 2014-07-14 16:07:06 [facility] Temperature Oral (F) 2014-07-07 16:43:27 98.1 F [facility] Heart Rate 2014-07-07 16:43:27 [facility] Respitory Rate 2014-07-07 16:43:27 [facility] Systolic (mm Hg) 2014-07-07 16:43:27 [facility] Diastolic (mm Hg) 2014-07-07 16:43:27 [facility] Weight 2014-07-07 16:43:27 [facility] Height 2014-01-07 17:17:01 [facility] Weight 2014-01-07 17:17:01 [facility] Temperature Oral (F) 2014-01-07 17:17:01 98.2 F [facility] Systolic (mm Hg) 2014-01-07 17:17:01 [facility] Diastolic (mm Hg) 2014-01-07 17:17:01 [facility] Heart Rate 2014-01-07 [facility]:17[facility]01 [facility] Procedure Date / Time Performed Performing Clinician Sourrobinson e bone density 2020-09-02 00:00:00 [facility] CBC WITH PLATELET AND DIFFERENTIAL 2019-12-21 15:21:00 Leona Pizano COMPREHENSIVE METABOLIC PANEL 2019-12-21 15:21:00 Jeanine Pizano Collection of venous blood by venipuncture 2018-10-07 16:15:00 [facility] Dental care 2018-02-22 05:00:00 [facility] gorman Vision care 2015-11-24 06:00:00 [facility] gorman depression, criteria for diagnosis, step 1 2014-12-28 20:02:01 [facility] depression, criteria for diagnosis, step 2 2014-12-28 20:02:01 [facility] depression, criteria for diagnosis, step 3 2014-12-28 20:02:01 [facility] diabetic foot check 2014-01-07 17:17:01 [facility] Orthopedic Surgery 2009-11-24 00:00:[address] [facility] 2008-11-24 00:00:00 [facility] Mammogram 2002-11-24 00:00:00 [facility] Caesarean Section 1971-11-24 00:00:00 [facility] CS - section [facility] Knee joint operation [facility] Tonsillectomy [facility] Plan of Care Planned Activity Planned Date Details Comments Source Diagnostic Test Pending 2020-09-03 00:00:00 microalbumin/cre atinine, mass ratio, urine [code = microalbumin/creatinine, mass ratio, urine] [facility] Diagnostic Test Pending 2020-09-03 00:00:00 culture, urine [ code = culture, urine] [facility] Diagnostic Test Pending 2020-09-02 00:00:00 lipid panel, ser um [code = lipid panel, serum] [facility] Diagnostic Test Pending 2020-09-02 00:00:00 noninvasive colo rectal cancer DNA + occult blood screening, stool [code = noninvasive colorectal cancer DNA + occult blood screening, stool] [facility] Diagnostic Test Pending 2020-09-02 00:00:00 hepatitis C viru s RNA, quant, PCR, serum or plasma [code = hepatitis C virus RNA, quant, PCR, serum or plasma] [facility] Diagnostic Test Pending 2020-09-02 00:00:00 CBC w/ auto diff [code = CBC w/ auto diff] [facility] Diagnostic Test Pending 2020-09-02 00:00:00 CMP, serum or pl asma [code = CMP, serum or plasma] [facility] Diagnostic Test Pending 2020-09-02 00:00:00 TSH, serum or pl asma [code = TSH, serum or plasma] [facility] Diagnostic Test Pending 2020-09-02 00:00:00 urinalysis, dips tick [code = urinalysis, dipstick] [facility] Diagnostic Test Pending 2020-09-02 00:00:00 HbA1c (hemoglobi n A1c), blood [code = HbA1c (hemoglobin A1c), blood] [facility] Future Scheduled Test 2020-06-24 00:00:00 INFLUENZA VACCINE [code = INFLUENZA VACCINE] [facility] Scheduled Test 2019 00:00:00 65+ PNEUMOCOCCAL V ACCINE (1 of 1 - PPSV23) [code = 65+ PNEUMOCOCCAL VACCINE (1 of 1 - PPSV23)] [facility] Scheduled Test 2004 00:00:00 BREAST CANCER SCRE ENING [code = BREAST CANCER SCREENING] [facility] Scheduled Test 2004 00:00:00 COLONOSCOPY SCREEN ING [code = COLONOSCOPY SCREENING] [facility] Scheduled Test 2004 00:00:00 SHINGLES VACCINES (#1) [code = SHINGLES VACCINES (#1)] [facility] Scheduled Test 1964 00:00:00 DIABETIC FOOT EXAM [code = DIABETIC FOOT EXAM] [facility] Scheduled Test 1964 00:00:00 URINE MICROALBUMIN [code = URINE MICROALBUMIN] [facility] Scheduled Test 1954 00:00:00 DIABETIC RETINAL E YE EXAM [code = DIABETIC RETINAL EYE EXAM] [facility] Appointment 2020-09-16 00:00:00 Magaly Wade, [address]; [address], [place] [address] [facility] robert Instructions [facility] Instructions [facility] Encounters Start Date/Time End Date/Time Encounter Type Admission Type Attendi [facility] Care Department Encounter ID Source 2020-09-03 13:25:00 2020-09-03 14:40:00 Departed Emergency Room [facility] [id number] [facility] 2020-09-02 00:00:00 2020-09-02 00:00:00 Maagly Wade WORM SORTER: [address], [address], [place] [address], Ph. [facility] VMFABBY Cortes ([facility]) [id number] [facility] 2020-04-18 00:00:00 2020-04-18 00:00:00 Ale guajardo MD: [address], [address], [place] [address], Ph. [facility] VMFABBY Cort[place] ([place]) [id number] [facility] 2020-03-13 15:36:47 2020-03-14 23:59:59 Outpatient [facility] [id number] 2020-03-14 00:00:00 2020-03-14 00:00:00 Outpatient [facility] [id number] Juan Antonio Sood 2020-01-10 00:00:00 2020-01-10 00:00:00 Ale guajardo MD: [address], [address], [place] [address], [facility]. [facility] VM_HOU_N. Sebastian (WAG) [id number] [facility] 2019-10-19 11:57:46 2019-10-20 23:59:59 Outpatient [facility] [id number] 2019-09-22 15:30:00 2019-09-22 23:59:59 Outpatient Ale Raymundo [facility] MG [id number] 2019-07-28 14:00:00 2019-07-28 23:59:59 Outpatient Ale Raymundo [facility] [id number] 2019-07-21 11:52:32 2019-07-22 23:59:59 Outpatient [facility] [id number] 2019-07-21 06:06:58 2019-07-22 06:06:58 Outpatient [facility] [id number] 2019-07-20 14:50:00 2019-07-20 23:59:00 Outpatient Ale Raymundo [id number] 2019-07-19 15:15:00 2019-07-19 23:59:59 Outpatient Ale Raymundo [facility] [id number] 2019-06-22 11:30:00 2019-06-22 11:30:00 Outpatient Loraine Martinez [facility] [id number] 2019-05-31 15:11:50 2019-06-01 23:59:59 Outpatient [facility] [id number] 2019-04-07 16:15:00 2019-04-07 23:59:59 Outpatient Ale Raymundo [facility] [id number] 2019-03-23 15:57:52 2019-03-24 23:59:59 Outpatient [facility] [id number] 2019-03-09 08:27:00 2019-03-10 23:59:59 Outpatient [facility] [id number] 2019-03-09 08:27:00 2019-03-10 23:59:59 Outpatient [facility] [id number] 2019-02-23 15:00:00 2019-02-23 23:59:59 Outpatient Ale Raymundo MG [facility] [id number] 2019-02-16 17:58:00 2019-02-17 23:59:59 Outpatient [facility] [id number] 2019-01-29 09:26:00 2019-01-30 23:59:59 Outpatient [facility] [id number] 2019-01-22 14:35:00 2019-01-23 23:59:59 Outpatient [facility] [id number] 2019-01-22 09:20:41 2019-01-23 09:20:41 Outpatient [facility] [id number] 2019-01-14 16:59:00 2019-01-15 23:59:59 Outpatient [facility] [id number] 2018-11-12 08:41:00 2018-11-13 23:59:59 Outpatient [facility] [id number] 2018-11-09 12:09:00 2018-11-10 23:59:59 Outpatient [facility] [id number] 2018-10-30 11:47:00 2018-10-31 23:59:59 Outpatient [facility] [id number] 2018-10-19 14:56:00 2018-10-20 23:59:59 Outpatient [facility] [id number] 2018-10-20 14:24:00 2018-10-20 23:59:00 Outpatient Ale Raymundo [facility] M[facility] [id number] 2018-10-07 09:45:00 2018-10-07 23:59:59 Outpatient VISIT, NURSE CLP [facility] [id number] 2018-09-30 16:00:00 2018-09-30 16:00:00 Outpatient Ale Raymundo [facility] [id number] 2018-09-28 15:30:00 2018-09-28 23:59:59 Outpatient Ale Raymundo [facility] [id number] 2018-08-11 13:03:00 2018-08-12 23:59:59 Outpatient [facility] MG [id number] 2018-07-01 14:00:00 2018-07-01 23:59:59 Outpatient Ale Raymundo [facility] [id number] 2018-05-28 14:12:00 2018-06-26 23:59:00 Outpatient Jeannette Thompson [id number] 2018-06-23 11:12:00 2018-06-24 23:59:59 Outpatient MG [facility] [id number] 2018-05-28 13:00:00 2018-05-28 13:00:00 Outpatient Ale Raymundo [facility] [id number] 2018-05-06 11:15:00 2018-05-06 23:59:59 Outpatient Ale Raymundo [facility] [id number] 2018-04-21 15:32:00 2018-04-21 23:59:00 Outpatient Ale Raymundo [facility] [id number] 2018-04-09 11:00:00 2018-04-09 23:59:59 Outpatient Ale Raymundo [facility] [id number] 2018-04-02 14:30:00 2018-04-02 23:59:59 Outpatient Ale Raymundo [facility] [id number] 2018-04-02 14:30:00 2018-04-02 23:59:59 Outpatient Ale Raymundo [facility] [id number] 2018-03-26 20:04:00 2018-03-26 21:37:00 Departed Emergency Room [facility] [id number] [facility] 2018-02-10 12:00:00 2018-02-11 23:59:59 Outpatient [facility] [id number] 2018-01-08 14:28:00 2018-01-09 23:59:59 Outpatient [facility] [id number] 2018-01-01 15:55:00 2018-01-02 23:59:59 Outpatient [facility] [id number] 2017-12-23 11:24:00 2017-12-24 23:59:59 Outpatient [facility] [id number] 2017-12-12 14:25:00 2017-12-13 23:59:59 Outpatient [facility] [id number] 2017-12-10 14:30:00 2017-12-10 23:59:59 Outpatient Thaisil Ale guajardo [facility] [id number] 2017-12-10 11:15:00 2017-12-10 11:15:00 Outpatient Thaisil Ale guajardo [facility] [id number] 2017-12-02 13:00:00 2017-12-02 13:00:00 Outpatient Ale Raymundo [facility] MG [id number] 2017-12-02 13:00:00 2017-12-02 13:00:00 Outpatient Ale Raymundo [facility] [id number] 2017-11-21 08:53:00 2017-11-22 23:59:59 Outpatient [facility] [id number] 2017-11-06 13:00:00 2017-11-06 23:59:59 Outpatient Ale Raymundo [facility] [id number] 2017-10-22 15:00:00 2017-10-22 23:59:59 Outpatient Thaisil Ale guajardo [facility] [id number] 2017-10-21 14:00:00 2017-10-21 14:00:00 Outpatient Thaisil Ale guajardo [facility] [id number] 2017-10-14 15:00:00 2017-10-14 15:00:00 Outpatient Ale Raymundo [facility] [id number] 2017-10-10 14:40:00 2017-10-11 23:59:59 Outpatient [facility] [id number] 2016-08-02 13:53:00 2016-08-02 23:59:00 Outpatient Tona So [facility] [id number] Results Test Description Test Time Test Comments Results Result Comments Source Urinalysis macro (dipstick) panel - Urine 2020-09-02 11:34:0 0 Test Item Color Color (test code = Color Color) light yellow Color Appearance (test code = Color Appearance) cloudy Color Glucose (test code = Color Glucose) 500 Color Bilirubin (test code = Color Bilirubin) negative Color Ketones (test code = Color Ketones) negative Color Specific [place] (test code = Color Specific [place]) 1.005 Color Blood (test code = Color Blood) negative Color PH (test code = Color PH) 5.5 Color Protein (test code = Color Protein) negative Color Urobilinogen (test code = Color Urobilinogen) 0.2 Color Nitrites (test code = Color Nitrites) negative Color Leukocytes (test code = Color Leukocytes) [facility] jevge6242-80-61 04:41:00* Test Item Value Reference Range Interpretation Comments Glucose (test code = 2345-7) 93 mg/dL 65-139 Non-fasting reference interval BUN (test code = 3094-0) 10 mg/dL 7-25 Creatinine (test code = 2160-0) 0.99 mg/dL 0.5-0.99 For patients >49 years of age, the reference limitfor Creatinine is approximately 13% higher for peopleidentified as -Tristanian. EGFR Non-Afr. Tristanian (test code = 2775) 60 > OR = 60 mL /min/1.73m2 EGFR (test code = 43555-5) 69 > OR = 60 mL/min/1.73m2 BUN/creatinine ratio (test code = 3097-3) NOT APPLICABLE 6- 22 (luann c) Sodium (test code = 2951-2) 137 mmol/L 135-146 Potassium (test code = 2823-3) 4.8 mmol/L 3.5-5.3 Chloride (test code = 5-0) 97 mmol/L 98-110 L CO2 (test code = 2027-9) 29 mmol/L 20-32 Calcium (test code = 12619-4) 10.1 mg/dL 8.6-10.4 Protein (test code = 2885-2) 7.5 g/dL 6.1-8.1 Albumin, S (test code = 1751-7) 4.6 g/dL 3.6-5.1 Globulin, total (test code = 30433-9) 2.9 1.9- 3.7 g/dL (c alc) Albumin/globulin ratio (test code = 1759-0) 1.6 1.0- 2.5 ( calc) Total bilirubin (test code = 1974-2) 0.5 mg/dL 0.2-1.2 Alkaline phosphatase (test code = 6768-6) 84 U/L 33-130 AST (test code = 1920-8) 14 U/L 10-35 ALT (test code = 1742-6) 12 U/L 6-29 PAU (test code = PAU) FASTING:NOFASTING: NO RAC (test code = RAC) Performing Organization Info rmation: Site ID: RGA Name: [facility] Address: [address] [place] [id number] Director: Inderjit Brennan Lab Interpretation (test code = 29249-3) Abnormal [facility] and yxdpfrxxjely7965-71-74 04:41:00* Test Item Value Reference Range Interpretation Comments WBC (test code = 6690-2) 10.5 3.8- 10.8 Thousand/uL RBC (test code = 789-8) 4.28 3.80- 5.10 Million/uL HGB (test code = 718-7) 13.2 g/dL 11.7-15.5 HCT (test code = 4544-3) 38.6 % 35-45 MCV (test code = 787-2) 90.2 fL 80-100 MCH (test code = 785-6) 30.8 pg 27-33 MCHC (test code = 786-4) 34.2 g/dL 32-36 RDW (test code = 788-0) 13.7 % 11-15 Platelet count (test code = 777-3) 418 140- 400 Thousand/u L H MPV (test code = 776-5) 9.0 fL 7.5-12.5 Neutrophils, absolute (test code = 751-8) 5891 1,500 - 7,80 0 cells/uL Lymphocytes, absolute (test code = 731-0) 3108 850- 3,900 c ells/uL Monocytes, absolute (test code = 742-7) 725 200- 950 cells /uL Eosinophils, absolute (test code = 711-2) 683 15- 500 cell s/uL H Basophils, absolute (test code = 704-7) 95 0- 200 cells/u L Neutrophils (test code = 770-8) 56.1 % Lymphocytes (test code = 736-9) 29.6 % Monocytes (test code = 5905-5) 6.9 % Eosinophils (test code = 713-8) 6.5 % Basophils + RC (test code = 706-2) 0.9 % PAU (test code = PAU) FASTING:NOFASTING: NO RAC (test code = RAC) Performing Organization Info rmation: Site ID: RGA Name: [facility] Address: [address] [place] [id number] Director: Inderjit Brennan Lab Interpretation (test code = 92586-2) Abnormal [facility] VgqfakhmmKaggvoodm5952-98-43 17:07:006.3[facility] 2015-01-09 17:07:43768Nggahxaf AighueuHfzebnaxq4781-59-87 17:07:72480Flcludtl VafayntQfqmypnjz1118-54-89 17:07:0051Memorial WfodgbqGcfzbtbwa1396-41-07 17:07:0030[facility] TzntlozRytbkbsmc3174-60-59 17:07:88500 MEQ/L[facility] Crwbuygit4805-36-51 17:07:004.6 MEQ/LMemorial FnijdojIjsaayonw0548-60-47 17:07:001.0[facility] KtsxnghYhhxaezee3580-97-17 17:07:0011[facility] Gjdpniybc6389-15-86 17:07:00* Test Item Value Reference Range Interpretation Comments BUN/CREAT (test code = BUN/CREAT) 11 1 6 [facility] DakzblkBzgcjwjvk8815-31-55 17:07:003.9[facility] 2015-01-09 17:07:009.0[facility] ZwqzixwTisobomcx2371-11-53 17:07:0023Memorial HlglmuuPmrapgwqg4982-43-71 17:07:0015[facility] FbvqsajVdxaqolov3460-59-27 17:07:0087[facility] EgbbtbeMcavwlyfv3726-23-94 17:07:000.786[facility] Cscgjavnly4536-50-13 17:07:0013.4Memorial CcbfuooKwukvsliaf0551-59-74 17:07:00 39.0Memorial NjnheroJwhxxtklfs7361-66-03 17:07:99999 K/CMMM[facility]orial [facility] Nizcrftkic2148-14-65 01:13:00[facility]ellow[facility] PotqmqxYjbgciwspo9968-86-30 01:13:00 Yellow[facility] PsdxofpHtqtojvmu0845-95-72 17:40:007.1[facility] 2014-07-07 17:40:007.1[facility]orial ZxcileyQltbqfteq1240-49-25 17:40:00272Tkqgbzrz AsisitxYyykkempy0710-37-66 17:40:16919Idacsazj TajdxjnZxeuoeing9741-90-77 17:40:007.1[facility] DussqytQdfhsruhd4078-65-77 17:40:42782Nhbilouq [facility] Ttewuuijo3783-47-34 17:40:34004Seryysbo WnulwvgJbipvxopu5312-21-49 17:40:0061 Memorial XjmpzvjDmiicwhil3104-40-60 17:40:0025[facility] 2014-07-07 17:40:17194 MEQ/LMemorial YbkjlkxSnlqabayf7908-99-20 17:40:004.4 MEQ/LMemorial ZlrhjstBnaujchxu4707-98-81 17:40:001.0[facility] 2014-07-07 17:40:0015[facility] BvgamprSsaefyiex6121-31-24 17:40:00* Test Item Value Reference Range Interpretation Comments BUN/CREAT (test code = BUN/CREAT) 15 1 6-25 Memorial VdoleyhUjqabaupt1558-96-46 17:40:004.5[facility] 2014-07-07 17:40:009.4[facility] FerfeytOrzxvvzxk7682-07-15 17:40:0031Mem[facility] MvjfgnoTexkelfsu4413-63-61 17:40:0024Mem[facility] CagkfhzJlkrdzpyq9532-60-49 17:40:0096Memorial SaboaxoXgpkwzdre8684-35-71 17:40:000.692[facility] Htwmhncjhr3609-50-22 17:40:0013.8Memorial HrztmllYrzgorkpol5381-91-54 17:40:00 41.5Memorial TfnjtoyMzelslwixi9364-08-97 17:40:99891 K/CMMMemorial [facility] Cmvcppdiur2572-11-41 17:40:00YellowMem[facility] JieqrupCrmqfuwavr1997-17-82 17:40:00 [facility] SrnlgxzZpsetgzcjz6738-19-53 17:40:00[facility] Haasmedmml0086-74-24 17:40:00[facility]
--- NOTE | 2020-09-05 11:05 | NUR ---
Urine culture has been collected and sent to the hospital lab via building attendant.
[2020-09-05] MEDS ORDERED: DIPHTH/TETANUS/ACEL. PERTUSSIS 0.5 ML SYR IM ONE (11:30)
[2020-09-05] MEDS ORDERED: TETANUS/DIPHTHERIA TOX ADULT 0.5 ML SYR ONE (11:49)
[2020-09-05] MEDS ORDERED: MACROBID 100 M100 MG PO (12:04)
[2020-09-05] MEDS ORDERED: BACITRACIN ZINC 0.9GM TP ONE (12:12)
== END 2020-09-05 12:36 | disposition home or self-care (01) ==
LOC: FSED 10:03
DX: S01.01XA Laceration without foreign body of scalp, initial encounter (principal); W01.198A Fall on same level from slipping, tripping and stumbling with subsequent striking against other object, initial encounter; Y92.008 Other place in unspecified non-institutional (private) residence as the place of occurrence of the external cause; I10 Essential (primary) hypertension; E11.9 Type 2 diabetes mellitus without complications; E03.9 Hypothyroidism, unspecified; F41.9 Anxiety disorder, unspecified
CPT/HCPCS: 80048; 80076; 81003; 82553; 84484; 85025; 87086; 90714; 99284

== ENCOUNTER 2020-09-15 11:46 | Emergency (ER) | payer MEDICARE, OTHER ==
[~2020-09-15] VITALS: Ht 160 cm; Wt 81.6 kg
[~2020-09-15 11:46] MED LIST changes: +MACROBID 100 M100 MG PO
[2020-09-15] MEDS ORDERED: CEFTRIAXONE SOD 1 GM VIAL IM ONE (12:30)
[2020-09-15] MEDS ORDERED: LIDOCAINE HCL 1% LOCAL INJ 20 ML VIAL ONE (12:31)
[2020-09-15] MEDS ORDERED: CEFTRIAXONE SOD 1 GM VIAL ONE (12:31)
== END 2020-09-15 12:46 | disposition home or self-care (01) ==
LOC: FSED 11:51
DX: L03.114 Cellulitis of left upper limb (principal); I10 Essential (primary) hypertension; E11.9 Type 2 diabetes mellitus without complications; E03.9 Hypothyroidism, unspecified; F41.9 Anxiety disorder, unspecified
CPT/HCPCS: 99283; J0696; J2001

== ENCOUNTER 2020-11-20 22:58 | Emergency (ER) | payer MEDICARE, OTHER ==
[~2020-11-20] VITALS: Ht 160 cm; Wt 81.6 kg
[2020-11-20] MEDS ORDERED: ONDANSETRON HCL INJ 2MG/ML 2ML 2 MG/ML VIAL IV STA (23:31)
[2020-11-20] MEDS ORDERED: SODIUM CHLORIDE 0.45% 500 ML IV SCH (23:45)
[2020-11-20] MEDS ORDERED: ONDANSETRON HCL 4 MG ORAL DISINTEGRATING TAB ONE (23:52)
[2020-11-21] MEDS ORDERED: ONDANSETRON HCL INJ 2MG/ML 2ML 2 MG/ML VIAL ONE (00:11)
[2020-11-21] MEDS ORDERED: SODIUM CHLORIDE 0.9% 500ML 500 ML ONE ×2 (00:11→01:28)
[2020-11-21] MEDS ORDERED: ZOFRAN4 MG PO (02:03)
== END 2020-11-21 02:15 | disposition left against medical advice (07) ==
LOC: FSED 23:19
DX: S00.03XA Contusion of scalp, initial encounter (principal); E87.1 Hypo-osmolality and hyponatremia; E86.0 Dehydration; E11.9 Type 2 diabetes mellitus without complications; I10 Essential (primary) hypertension; E86.1 Hypovolemia; E87.8 Other disorders of electrolyte and fluid balance, not elsewhere classified; Y99.8 Other external cause status; E03.9 Hypothyroidism, unspecified; F41.9 Anxiety disorder, unspecified; W10.8XXA Fall (on) (from) other stairs and steps, initial encounter; Z88.2 Allergy status to sulfonamides; Z87.891 Personal history of nicotine dependence
CPT/HCPCS: 70450; 80048; 85025; 99284; J2405; J7040; Q0162; U0002

== ENCOUNTER 2022-06-02 10:03 | Emergency (ER) | payer MEDICARE, OTHER ==
[~2022-06-02] VITALS: Ht 154.9 cm; Wt 57.8 kg
[~2022-06-02 10:03] MED LIST changes: +ZOFRAN4 MG PO
[2022-06-02] MEDS ORDERED: ALDACTONE100 MG PO (10:42)
[2022-06-02] MEDS ORDERED: JARDIANCE25 MG (10:42)
[2022-06-02] MEDS ORDERED: MYSOLINE50 MG (10:42)
[2022-06-02] MEDS ORDERED: SIMVASTATIN40 MG PO (10:42)
[2022-06-02] MEDS ORDERED: ESTRADIOL1 MG PO (10:42)
[2022-06-02] MEDS ORDERED: NORETHIN-ETH E1 EACH (10:42)
[2022-06-02] MEDS ORDERED: LEVOTHYROXINE75 MCG PO (10:42)
[2022-06-02] MEDS ORDERED: JENTADUETO 2.51 EAC2 (10:42)
[2022-06-02] MEDS ORDERED: BUSPIRONE HCL15 MG (10:42)
[2022-06-02] MEDS ORDERED: NIFEDIPINE ER30 M1 PO (10:42)
[2022-06-02] MEDS ORDERED: areds2 (10:42)
[2022-06-02] MEDS ORDERED: qunol (10:42)
[2022-06-02] MEDS ORDERED: CEFDINIR300 MG PO (10:50)
== END 2022-06-02 11:02 | disposition home or self-care (01) ==
LOC: FSED 10:50
DX: L03.031 Cellulitis of right toe (principal); I10 Essential (primary) hypertension; E11.9 Type 2 diabetes mellitus without complications; E78.5 Hyperlipidemia, unspecified; E03.9 Hypothyroidism, unspecified; F41.9 Anxiety disorder, unspecified
CPT/HCPCS: 99283

== ENCOUNTER 2022-06-19 07:44 | Emergency (ER) | payer MEDICARE, OTHER ==
[~2022-06-19] VITALS: Ht 154.9 cm; Wt 57.6 kg
[~2022-06-19 07:44] MED LIST changes: +ALDACTONE100 MG PO; +BUSPIRONE HCL15 MG; +CEFDINIR300 MG PO; +ESTRADIOL1 MG PO; +JARDIANCE25 MG; +JENTADUETO 2.51 EAC2; +LEVOTHYROXINE75 MCG PO; +MYSOLINE50 MG; +NIFEDIPINE ER30 M1 PO; +NORETHIN-ETH E1 EACH; +SIMVASTATIN40 MG PO; +areds2; +qunol
== END 2022-06-19 08:42 | disposition home or self-care (01) ==
LOC: ER 07:56
DX: U07.1 COVID-19 (principal); L03.031 Cellulitis of right toe; E11.65 Type 2 diabetes mellitus with hyperglycemia; I10 Essential (primary) hypertension; E78.5 Hyperlipidemia, unspecified; E03.9 Hypothyroidism, unspecified; F41.9 Anxiety disorder, unspecified
CPT/HCPCS: 36415; 82948; 99282; U0002

== ENCOUNTER 2022-06-21 05:07 | Emergency (ER) | payer MEDICARE, OTHER ==
[~2022-06-21] VITALS: Ht 154.9 cm; Wt 56.2 kg
[2022-06-21] MEDS ORDERED: ACETAMINOPHEN 325 MG TAB ONE (05:40)
[2022-06-21] MEDS ORDERED: PREDNISONE20 MG PO (05:55)
[2022-06-21] MEDS ORDERED: DOXYCYCLINE HY100 MG PO (05:56)
[2022-06-21] MEDS ORDERED: PREDNISONE 20 MG TAB PO ONE (06:00)
[2022-06-21] MEDS ORDERED: FAMOTIDINE 20 MG TAB PO ONE (06:00)
[2022-06-21] MEDS ORDERED: ACETAMINOPHEN 325 MG TAB PO ONE (06:00)
[2022-06-21 06:06] VITALS: BP 127/61
== END 2022-06-21 06:23 | disposition home or self-care (01) ==
LOC: FSED 05:35
DX: R50.9 Fever, unspecified (principal); L03.031 Cellulitis of right toe; U07.1 COVID-19; I10 Essential (primary) hypertension; E11.9 Type 2 diabetes mellitus without complications; E78.5 Hyperlipidemia, unspecified; E03.9 Hypothyroidism, unspecified
CPT/HCPCS: 99282; J7512

== ENCOUNTER 2022-06-25 06:27 | Emergency (ER) | payer MEDICARE, OTHER ==
[~2022-06-25] VITALS: Ht 157.5 cm; Wt 59.0 kg
[~2022-06-25 06:27] MED LIST changes: +DOXYCYCLINE HY100 MG PO; +PREDNISONE20 MG PO
[2022-06-25] MEDS ORDERED: DEXAMETHASONE SOD PHOS INJ 4 MG/ML SDV IM ONE (07:30)
[2022-06-25] MEDS ORDERED: DEXAMETHASONE SOD PHOS INJ 4 MG/ML SDV ONE (07:41)
== END 2022-06-25 07:45 | disposition home or self-care (01) ==
LOC: FSED 07:16
DX: L27.0 Generalized skin eruption due to drugs and medicaments taken internally (principal); T36.8X5A Adverse effect of other systemic antibiotics, initial encounter
CPT/HCPCS: 99282; J1100

== ENCOUNTER 2022-07-01 08:18 | Emergency (ER) | payer MEDICARE, OTHER ==
[~2022-07-01] VITALS: Ht 157.5 cm; Wt 59.0 kg
== END 2022-07-01 08:36 | disposition home or self-care (01) ==
LOC: ER 08:29
DX: M79.674 Pain in right toe(s) (principal); L84 Corns and callosities; I10 Essential (primary) hypertension; E11.9 Type 2 diabetes mellitus without complications; E78.5 Hyperlipidemia, unspecified; E03.9 Hypothyroidism, unspecified; F41.9 Anxiety disorder, unspecified
CPT/HCPCS: 99282

== ENCOUNTER 2022-12-23 08:36 | Inpatient (IN) | payer MEDICARE, OTHER ==
[~2022-12-23] VITALS: Ht 157.5 cm; Wt 59.0 kg
[~2022-12-23 08:36] MED LIST changes: +JARDIANCE10 MG; -MYSOLINE50 MG; +MYSOLINE50 MG PO; +TRINTELLIX10 MG; +WELLBUTRIN SR200 MG PO
[2022-12-23] MEDS ORDERED: SODIUM CHLORIDE 0.9% 1000ML 1,000 ML IV STA (08:48)
[2022-12-23 09:23] LABS: BASOPHILS % 0.3 % (0.0-1.0); EOSINOPHILS % 0.2 % (0.0-6.0); HEMATOCRIT 32.4 % (34.2-44.1); HEMOGLOBIN 11.2 g/dL (12.0-16.0); LYMPHOCYTES # (AUTO) 0.4 (1.0-3.2); LYMPHOCYTES % 6.7 % (18.0-39.1); MEAN CORPUSCULAR HEMOGLOBIN 32.6 pg (28-32); MEAN CORPUSCULAR HGB CONC 34.6 g/dL (31-35); MEAN CORPUSCULAR VOLUME 94.2 fL (81-99); MONOCYTES # (AUTO) 0.5 (0.2-0.8); NEUTROPHILS # (AUTO) 5.5 (2.1-6.9); PLATELET COUNT 213 x10e3/uL (140-360); RED BLOOD COUNT 3.44 x10e6/uL (3.6-5.1); RED CELL DISTRIBUTION WIDTH 12.4 % (11.7-14.4)
[2022-12-23 09:33] LABS: COLOR,URINE YELLOW (YELLOW)
[2022-12-23 09:34] LABS: CLARITY,URINE CLOUDY (CLEAR); INR 1.04; KETONES,URINE 2+ (NEGATIVE); LEUKOCYTE ESTERASE ,URINE SMALL (NEGATIVE); NITRITE,URINE NEGATIVE (NEGATIVE); PROTEIN,URINE DIPSTICK NEGATIVE (NEGATIVE); PROTHROMBIN TIME 13.8 seconds (11.9-14.5); URINE UROBILINOGEN 0.2 mg/dL (0.2 - 1)
[2022-12-23 09:35] LABS: PARTIAL THROMBOPLASTIN TIME 33.8 seconds (23.8-35.5)
[2022-12-23 09:42] LABS: ALBUMIN 3.1 g/dL (3.5-5.0); ANION GAP 14.7 mmol/L (8-16); CALCIUM 8.6 mg/dL (8.4-10.2); CREATININE, SERUM 0.69 mg/dL (0.57-1.11); MAGNESIUM 1.4 MG/DL (1.3-2.1); POTASSIUM 3.7 mmol/L (3.5-5.1)
[2022-12-23 09:45] LABS: BACTERIA,URINE FEW /HPF; EPITHELIAL CELLS,URINE FEW /LPF; RBC,URINE >50 /HPF (0-5); TRANSITIONAL EPI CELLS,URINE FEW; WBC,URINE (MAN) >50 /HPF (0-5)
[2022-12-23 10:04] LABS: CREATINE KINASE MB 14.8 ng/mL (0-5.0); THYROID STIMULATING HORMONE 1.893 uIU/mL (0.350-4.940)
[2022-12-23] MEDS ORDERED: ASPIRIN 81 MG CHEW TAB PO ONE (10:15)
[2022-12-23] MEDS ORDERED: FAMOTIDINE 20 MG/2 ML VIAL IV SCH (10:30)
[2022-12-23] MEDS ORDERED: ONDANSETRON HCL INJ 2MG/ML 2ML 2 MG/ML VIAL IV PRN (10:30)
[2022-12-23] MEDS ORDERED: CLOPIDOGREL BISULFATE 75 MG TAB PO ONE (10:45)
[2022-12-23] MEDS: SODIUM CHLORIDE 0.9% 1000ML 1,000 ML IV SCH ×2 (11:08→19:59)
[2022-12-23] MEDS ORDERED: IOPAMIDOL 370 MG/ML 100 ML INFUS..BTL INJ ONE (12:25)
[2022-12-23] MEDS: TRAMADOL HCL 50 MG TAB PO PRN ×2 (13:13→19:30)
[2022-12-23 15:01] LABS: CREATINE KINASE MB 14.3 ng/mL (0-5.0)
[2022-12-23 15:12] LABS: ANION GAP 13.7 mmol/L (8-16); CREATININE, SERUM 0.69 mg/dL (0.57-1.11); POTASSIUM 3.7 mmol/L (3.5-5.1)
[2022-12-23 16:41] VITALS: BP 84/51
[2022-12-23 16:57] VITALS: BP 84/51
[2022-12-23 17:00] VITALS: BP 87/46
[2022-12-23 19:00] VITALS: BP 86/58
[2022-12-23 19:34] VITALS: BP 84/52
[2022-12-23] MEDS: FAMOTIDINE 20 MG/2 ML VIAL IV SCH (19:59)
[2022-12-24] VITALS (9 sets, daily range): BP systolic 84–106; BP diastolic 54–66
[2022-12-24 00:45] LABS: CREATINE KINASE MB 10.8 ng/mL (0-5.0)
[2022-12-24] MEDS: TRAMADOL HCL 50 MG TAB PO PRN ×4 (04:32→21:23)
[2022-12-24 05:02] LABS: BASOPHILS % 0.5 % (0.0-1.0); EOSINOPHILS # (AUTO) 0.3 (0.0-0.4); EOSINOPHILS % 3.3 % (0.0-6.0); HEMATOCRIT 32.4 % (34.2-44.1); HEMOGLOBIN 10.9 g/dL (12.0-16.0); LYMPHOCYTES # (AUTO) 0.8 (1.0-3.2); LYMPHOCYTES % 9.9 % (18.0-39.1); MEAN CORPUSCULAR HEMOGLOBIN 32.4 pg (28-32); MEAN CORPUSCULAR HGB CONC 33.6 g/dL (31-35); MEAN CORPUSCULAR VOLUME 96.4 fL (81-99); MONOCYTES # (AUTO) 0.6 (0.2-0.8); MONOCYTES % 7.7 % (4.4-11.3); NEUTROPHILS # (AUTO) 6.1 (2.1-6.9); NEUTROPHILS % 78.2 % (38.7-80.0); PLATELET COUNT 204 x10e3/uL (140-360); RED BLOOD COUNT 3.36 x10e6/uL (3.6-5.1); RED CELL DISTRIBUTION WIDTH 13.1 % (11.7-14.4)
[2022-12-24 05:22] LABS: ALBUMIN 2.7 g/dL (3.5-5.0); ALBUMIN/GLOBULIN RATIO 0.9 (0.8-2.0); ANION GAP 13.1 mmol/L (8-16); CALCIUM 8.3 mg/dL (8.4-10.2); CHOL/HDL RATIO 2.4 (3.0-3.6); CREATININE, SERUM 0.73 mg/dL (0.57-1.11); POTASSIUM 4.1 mmol/L (3.5-5.1)
[2022-12-24 05:53] LABS: CREATINE KINASE MB 9.4 ng/mL (0-5.0)
[2022-12-24] MEDS: SODIUM CHLORIDE 0.9% 1000ML 1,000 ML IV SCH ×2 (06:20→16:15)
[2022-12-24] MEDS ORDERED: DEXTROSE 50% SYRINGE 50 ML IV PRN (08:45)
[2022-12-24] MEDS ORDERED: LEVOTHYROXINE SODIUM 75 MCG TAB PO SCH (09:00)
[2022-12-24] MEDS ORDERED: ENOXAPARIN SOD INJ 60 MG/0.6 ML SYR SC SCH (09:00)
[2022-12-24] MEDS ORDERED: ASPIRIN 325 MG TAB PO SCH (09:00)
[2022-12-24 09:50] LABS: BLOOD UREA NITROGEN 13 mg/dL (7-26); GLUCOSE 72 mg/dL (74-118); OSMOLALITY,SERUM 252 mOsm/kg (278-305); SODIUM 126 mmol/L (136-145)
[2022-12-24] MEDS: FAMOTIDINE 20 MG/2 ML VIAL IV SCH ×2 (10:15→21:23)
[2022-12-24] MEDS: BUPROPION HCL 150 MG TABCR PO SCH (10:15)
[2022-12-24] MEDS ORDERED: FLUTAMIDE125 MG PO (10:31)
[2022-12-24] MEDS ORDERED: LEXAPRO20 MG PO (10:33)
[2022-12-24] MEDS ORDERED: FINASTERIDE5 MG PO (10:36)
[2022-12-24] MEDS: INSULIN REGULAR, HUMAN 100 UNIT/1 ML SQ SCH ×3 (11:30→21:00)
[2022-12-24] MEDS: CLOPIDOGREL BISULFATE 75 MG TAB PO SCH (12:34)
[2022-12-24] MEDS: ATORVASTATIN 40 MG TAB PO SCH (21:23)
[2022-12-25] VITALS (8 sets, daily range): BP systolic 98–115; BP diastolic 52–72
[2022-12-25] MEDS: LEVOTHYROXINE SODIUM 75 MCG TAB PO SCH (05:41)
[2022-12-25] MEDS: SODIUM CHLORIDE 0.9% 1000ML 1,000 ML IV SCH ×3 (05:41→20:41)
[2022-12-25 05:51] LABS: BASOPHILS % 0.4 % (0.0-1.0); EOSINOPHILS # (AUTO) 0.2 (0.0-0.4); EOSINOPHILS % 3.1 % (0.0-6.0); HEMATOCRIT 32.3 % (34.2-44.1); HEMOGLOBIN 10.9 g/dL (12.0-16.0); LYMPHOCYTES # (AUTO) 0.5 (1.0-3.2); LYMPHOCYTES % 7.3 % (18.0-39.1); MEAN CORPUSCULAR HEMOGLOBIN 32.3 pg (28-32); MEAN CORPUSCULAR HGB CONC 33.7 g/dL (31-35); MEAN CORPUSCULAR VOLUME 95.8 fL (81-99); MONOCYTES # (AUTO) 0.6 (0.2-0.8); MONOCYTES % 8.5 % (4.4-11.3); NEUTROPHILS # (AUTO) 5.7 (2.1-6.9); NEUTROPHILS % 80.4 % (38.7-80.0); PLATELET COUNT 231 x10e3/uL (140-360); RED BLOOD COUNT 3.37 x10e6/uL (3.6-5.1); RED CELL DISTRIBUTION WIDTH 13.1 % (11.7-14.4)
[2022-12-25 06:22] LABS: ALBUMIN 2.8 g/dL (3.5-5.0); ALBUMIN/GLOBULIN RATIO 0.9 (0.8-2.0); ANION GAP 11.8 mmol/L (8-16); CALCIUM 8.4 mg/dL (8.4-10.2); CREATININE, SERUM 0.64 mg/dL (0.57-1.11); POTASSIUM 3.8 mmol/L (3.5-5.1)
[2022-12-25] MEDS: INSULIN REGULAR, HUMAN 100 UNIT/1 ML SQ SCH ×4 (07:30→20:47)
[2022-12-25] MEDS: TRAMADOL HCL 50 MG TAB PO PRN ×3 (07:38→22:58)
[2022-12-25] MEDS: BUPROPION HCL 150 MG TABCR PO SCH (07:58)
[2022-12-25] MEDS: CLOPIDOGREL BISULFATE 75 MG TAB PO SCH (07:59)
[2022-12-25] MEDS: ASPIRIN 81 MG CHEW TAB PO SCH (07:59)
[2022-12-25] MEDS: FAMOTIDINE 20 MG/2 ML VIAL IV SCH ×2 (07:59→20:41)
[2022-12-25] MEDS: BACITRACIN ZINC 15 GM OINT TOP SCH (07:59)
[2022-12-25] MEDS: SODIUM CHLORIDE 1 GM TAB PO SCH ×3 (12:07→20:42)
[2022-12-25 15:08] LABS: BLOOD UREA NITROGEN 11 mg/dL (7-26); GLUCOSE 180 mg/dL (74-118); OSMOLALITY,SERUM 257 mOsm/kg (278-305); SODIUM 126 mmol/L (136-145)
[2022-12-25] MEDS: ATORVASTATIN 40 MG TAB PO SCH (20:41)
[2022-12-25] MEDS: ONDANSETRON HCL 4 MG ORAL DISINTEGRATING TAB PO PRN (22:58)
[2022-12-26] VITALS (7 sets, daily range): BP systolic 95–110; BP diastolic 59–69
[2022-12-26] MEDS: LEVOTHYROXINE SODIUM 75 MCG TAB PO SCH (05:38)
[2022-12-26] MEDS: TRAMADOL HCL 50 MG TAB PO PRN ×3 (07:20→22:18)
[2022-12-26] MEDS: INSULIN REGULAR, HUMAN 100 UNIT/1 ML SQ SCH ×4 (07:30→21:00)
[2022-12-26 08:09] LABS: BASOPHILS % 0.5 % (0.0-1.0); EOSINOPHILS # (AUTO) 0.3 (0.0-0.4); EOSINOPHILS % 4.8 % (0.0-6.0); HEMATOCRIT 31.2 % (34.2-44.1); LYMPHOCYTES # (AUTO) 0.7 (1.0-3.2); LYMPHOCYTES % 11.9 % (18.0-39.1); MEAN CORPUSCULAR HEMOGLOBIN 32.5 pg (28-32); MEAN CORPUSCULAR HGB CONC 35.3 g/dL (31-35); MEAN CORPUSCULAR VOLUME 92.3 fL (81-99); MONOCYTES # (AUTO) 0.6 (0.2-0.8); MONOCYTES % 9.3 % (4.4-11.3); NEUTROPHILS # (AUTO) 4.4 (2.1-6.9); PLATELET COUNT 208 x10e3/uL (140-360); RED BLOOD COUNT 3.38 x10e6/uL (3.6-5.1); RED CELL DISTRIBUTION WIDTH 13.4 % (11.7-14.4)
[2022-12-26 08:37] LABS: ANION GAP 12.9 mmol/L (8-16); CALCIUM 8.3 mg/dL (8.4-10.2); CREATININE, SERUM 0.68 mg/dL (0.57-1.11); POTASSIUM 3.9 mmol/L (3.5-5.1)
[2022-12-26] MEDS: FAMOTIDINE 20 MG/2 ML VIAL IV SCH ×2 (09:44→22:21)
[2022-12-26] MEDS: ASPIRIN 81 MG CHEW TAB PO SCH (09:44)
[2022-12-26] MEDS: SODIUM CHLORIDE 1 GM TAB PO SCH ×3 (09:45→22:17)
[2022-12-26] MEDS: BACITRACIN ZINC 15 GM OINT TOP SCH (09:45)
[2022-12-26] MEDS: SODIUM CHLORIDE 0.9% 1000ML 1,000 ML IV SCH ×2 (09:45→22:21)
[2022-12-26] MEDS: CLOPIDOGREL BISULFATE 75 MG TAB PO SCH (09:45)
[2022-12-26] MEDS: BUPROPION HCL 150 MG TABCR PO SCH (09:45)
[2022-12-26] MEDS ORDERED: tylenol #3 PO (19:01)
[2022-12-26] MEDS ORDERED: FOLIC ACID0.4 MG PO (19:01)
[2022-12-26] MEDS ORDERED: TRINTELLIX20 MG PO (19:01)
[2022-12-26] MEDS ORDERED: BUSPIRONE HCL10 MG PO (19:01)
[2022-12-26] MEDS ORDERED: FAMOTIDINE20 MG PO (19:01)
[2022-12-26] MEDS ORDERED: SPIRONOLACTONE25 MG PO (19:01)
[2022-12-26] MEDS ORDERED: FINASTERIDE5 MG PO (19:01)
[2022-12-26] MEDS ORDERED: SIMVASTATIN40 MG PO (19:01)
[2022-12-26] MEDS ORDERED: ESTRADIOL1 MG PO (19:01)
[2022-12-26] MEDS ORDERED: AZELASTINE137 MCG/0. (19:01)
[2022-12-26] MEDS ORDERED: JENTADUETO 2.51 EACH PO (19:01)
[2022-12-26] MEDS ORDERED: LEVOTHYROXINE75 MCG PO (19:01)
[2022-12-26] MEDS ORDERED: BUPROPION HCL150 MG PO (19:01)
[2022-12-26] MEDS ORDERED: NIFEDIPINE ER30 M1 PO (19:01)
[2022-12-26] MEDS ORDERED: ULTRAM 50MG50 MG PO (19:01)
[2022-12-26] MEDS ORDERED: SUCRALFATE1 GM PO (19:01)
[2022-12-26] MEDS ORDERED: JARDIANCE25 MG PO (19:01)
[2022-12-26] MEDS ORDERED: MYSOLINE50 MG PO (19:01)
[2022-12-26] MEDS: ATORVASTATIN 40 MG TAB PO SCH (22:20)
[2022-12-26] MEDS: ONDANSETRON HCL 4 MG ORAL DISINTEGRATING TAB PO PRN (23:07)
[2022-12-27 01:02] VITALS: BP 116/74
[2022-12-27] MEDS: TRAMADOL HCL 50 MG TAB PO PRN (04:54)
[2022-12-27] MEDS ORDERED: PLAVIX75 MG PO (05:00)
[2022-12-27] MEDS ORDERED: SODIUM CHLORI1000 M2 PO (05:00)
[2022-12-27 05:06] VITALS: BP 117/73
[2022-12-27] MEDS: LEVOTHYROXINE SODIUM 75 MCG TAB PO SCH (06:39)
[2022-12-27] MEDS: SODIUM CHLORIDE 0.9% 1000ML 1,000 ML IV SCH (06:39)
[2022-12-27 07:23] VITALS: BP 117/73
[2022-12-27] MEDS: INSULIN REGULAR, HUMAN 100 UNIT/1 ML SQ SCH (07:30)
[2022-12-27 07:49] VITALS: BP 101/66
[2022-12-27 07:51] VITALS: BP 101/66
[2022-12-27] MEDS: BUPROPION HCL 150 MG TABCR PO SCH (09:07)
[2022-12-27] MEDS: BACITRACIN ZINC 15 GM OINT TOP SCH (09:07)
[2022-12-27] MEDS: SODIUM CHLORIDE 1 GM TAB PO SCH (09:07)
[2022-12-27] MEDS: ASPIRIN 81 MG CHEW TAB PO SCH (09:07)
[2022-12-27] MEDS: CLOPIDOGREL BISULFATE 75 MG TAB PO SCH (09:07)
[2022-12-27] MEDS: FAMOTIDINE 20 MG/2 ML VIAL IV SCH (09:07)
== END 2022-12-27 11:35 | disposition home or self-care (01) | DRG 280 ==
LOC: ER 08:39 → ERHOLD 10:16 → UNDOADMIN 10:16 → ERHOLD 10:25 → ICU 16:25 → MED/SURG2 12-24 14:59
PROVIDERS: ADMIT Internal Medicine; ATTEND Internal Medicine
DX: I21.A1 Myocardial infarction type 2 (principal); R57.0 Cardiogenic shock; E87.1 Hypo-osmolality and hyponatremia; N39.0 Urinary tract infection, site not specified; I50.40 Unspecified combined systolic (congestive) and diastolic (congestive) heart failure; I11.0 Hypertensive heart disease with heart failure; E86.0 Dehydration; R29.6 Repeated falls; R00.1 Bradycardia, unspecified; E03.9 Hypothyroidism, unspecified; F41.9 Anxiety disorder, unspecified; K21.9 Gastro-esophageal reflux disease without esophagitis; E78.5 Hyperlipidemia, unspecified; E11.649 Type 2 diabetes mellitus with hypoglycemia without coma; L65.9 Nonscarring hair loss, unspecified; S09.90XA Unspecified injury of head, initial encounter; M54.9 Dorsalgia, unspecified; E11.69 Type 2 diabetes mellitus with other specified complication; S09.93XA Unspecified injury of face, initial encounter; G89.29 Other chronic pain; W19.XXXA Unspecified fall, initial encounter; E87.8 Other disorders of electrolyte and fluid balance, not elsewhere classified; F31.9 Bipolar disorder, unspecified; Z90.89 Acquired absence of other organs; Z98.890 Other specified postprocedural states; Z88.1 Allergy status to other antibiotic agents; Z88.2 Allergy status to sulfonamides; Z88.8 Allergy status to other drugs, medicaments and biological substances; Z79.3 Long term (current) use of hormonal contraceptives; Z79.899 Other long term (current) drug therapy; Z86.16 Personal history of COVID-19; Z83.3 Family history of diabetes mellitus; Z79.890 Hormone replacement therapy; Z87.81 Personal history of (healed) traumatic fracture
CPT/HCPCS: 36415; 70450; 71045; 71260; 72125; 80048; 80053; 80061; 81001; 82550; 82553; 82947; 82948; 83036; 83605; 83735; 83880; 84295; 84443; 84484; 84520; 85025; 85610; 85730; 87040; 87086; 93005; 93306; 94799; 96361; 99252; 99284; J1817; J2405; J2543; J7030; Q0162; Q9967

== ENCOUNTER 2023-02-19 13:57 | Outpatient (RCR) | payer MEDICARE, OTHER ==
[~2023-02-19 13:57] MED LIST changes: +AZELASTINE137 MCG/0.; +BUPROPION HCL150 MG PO; +BUSPIRONE HCL10 MG PO; +FAMOTIDINE20 MG PO; +FINASTERIDE5 MG PO; +FLUTAMIDE125 MG PO; +FOLIC ACID0.4 MG PO; +JARDIANCE25 MG PO; +JENTADUETO 2.51 EACH PO; +LEXAPRO20 MG PO; +PLAVIX75 MG PO; +SODIUM CHLORI1000 M2 PO; +SPIRONOLACTONE25 MG PO; +SUCRALFATE1 GM PO; +TRINTELLIX20 MG PO; +ULTRAM 50MG50 MG PO; +tylenol #3 PO
== END 2023-02-21 ==
LOC: PT 13:57
PROVIDERS: ATTEND Specialist
DX: S82.191D Other fracture of upper end of right tibia, subsequent encounter for closed fracture with routine healing (principal)

== ENCOUNTER 2023-03-04 12:32 | Outpatient (RCR) | payer MEDICARE, OTHER ==
[2023-03-13] MEDS ORDERED: ACETAMINOPHEN-1 EAC4 PO (10:39)
== END 2023-03-23 ==
LOC: PT 12:32
PROVIDERS: ATTEND Specialist
DX: S82.191D Other fracture of upper end of right tibia, subsequent encounter for closed fracture with routine healing (principal)

== ENCOUNTER 2023-03-13 09:25 | Emergency (ER) | payer MEDICARE, OTHER ==
[~2023-03-13] VITALS: Ht 157.5 cm; Wt 63.5 kg
[2023-03-13] MEDS ORDERED: KETOROLAC TROMETHAMINE 30 MG/ML VIAL IM ONE (10:00)
[2023-03-13] MEDS ORDERED: KETOROLAC TROMETHAMINE 30 MG/ML VIAL ONE (10:22)
[2023-03-13] MEDS ORDERED: ACETAMINOPHEN-1 EAC4 PO (10:39)
== END 2023-03-13 11:29 | disposition home or self-care (01) ==
LOC: FSED 09:28
DX: S82.141A Displaced bicondylar fracture of right tibia, initial encounter for closed fracture (principal); W18.11XA Fall from or off toilet without subsequent striking against object, initial encounter; Y92.091 Bathroom in other non-institutional residence as the place of occurrence of the external cause; I10 Essential (primary) hypertension; E11.9 Type 2 diabetes mellitus without complications; E78.5 Hyperlipidemia, unspecified; E03.9 Hypothyroidism, unspecified; K21.9 Gastro-esophageal reflux disease without esophagitis; F31.9 Bipolar disorder, unspecified; F41.9 Anxiety disorder, unspecified
CPT/HCPCS: 73562; 99282; J1885

== ENCOUNTER 2023-04-16 10:26 | Outpatient (RCR) | payer MEDICARE, OTHER ==
[~2023-04-16 10:26] MED LIST changes: +ACETAMINOPHEN-1 EAC4 PO
== END 2023-04-23 ==
LOC: PT 10:26
PROVIDERS: ATTEND Physician Assistant
DX: S82.031A Displaced transverse fracture of right patella, initial encounter for closed fracture (principal)

== ENCOUNTER 2023-05-21 17:34 | Outpatient (RCR) | payer MEDICARE, OTHER | END 2023-05-23 | LOC: PT 17:34 | PROVIDERS: ATTEND Anesthesiology Pain Medicine | DX: M54.9 Dorsalgia, unspecified (principal) ==

== ENCOUNTER → 2023-05-23 | Outpatient (RCR) | payer MEDICARE, OTHER | LOC: PT 04-24 07:21 | PROVIDERS: ATTEND Anesthesiology Pain Medicine | DX: M43.16 Spondylolisthesis, lumbar region (principal); M48.061 Spinal stenosis, lumbar region without neurogenic claudication; M54.16 Radiculopathy, lumbar region ==